=== PATIENT | male | born 1935 | race Caucasian/White ===

== ENCOUNTER 2019-07-24 23:10 | Inpatient (IN) ==
[2019-07-24] MEDS ORDERED: SODIUM CHLORIDE 0.9% 1000ML 1,000 ML IV SCH (23:45)
[2019-07-25] MEDS ORDERED: MoRPHine SULFATE 2 MG/ML CARP IV STA (00:09)
[2019-07-25 00:59] LABS: Basophils # (auto) 0.01 K/uL (0-0.2); Basophils % (auto) 0.1 %; Eosinophils # (auto) 0.05 K/uL (0-0.5); Eosinophils % (auto) 0.3 %; Hematocrit (blood only) 35.5 % (42-52); Hemoglobin 11.8 g/dL (14.0-18.0); Immature Granulocytes # (auto) 0.16 K/uL (0.00-0.02); Immature Granulocytes % (auto) 0.9 %; Lymphocytes # (auto) 1.86 K/uL (1.2-3.4); Lymphocytes % (auto) 10.4 %; Mean Corpuscular Hemoglobin 31.8 pg (25-34); Mean Corpuscular Hgb Conc 33.2 g/dL (32-36); Mean Corpuscular Volume 95.7 fL (80-100); Mean Platelet Volume 10.4 fL (7.4-10.4); Monocytes # (auto) 1.51 K/uL (0.11-0.59); Monocytes % (auto) 8.5 %; Neutrophils # (auto) 14.27 K/uL (1.4-6.5); Neutrophils % (auto) 79.8 %; Platelet Count 313 K/uL (130-400); RDW Coefficient of Variation 13.3 % (11.5-14.5); RDW Standard Deviation 46.4 fL (36.4-46.3); Red Blood Count 3.71 M/uL (4.7-6.1); White Blood Count 17.86 K/uL (4.8-10.8)
[2019-07-25 01:16] LABS: Alanine Aminotransferase 23 U/L (12-78); Albumin Level 3.1 gm/dl (3.4-5.0); Aspartate Aminotransferase 9 U/L (15-37); BUN Creatinine Ratio 20.2 (10-20); Blood Urea Nitrogen 24 mg/dl (7-18); Calcium 8.7 mg/dl (8.5-10.1); Carbon Dioxide 26 mmol/L (21-32); Chloride 107 mmol/L (98-107); Est GFR (African American) 65.5; Est GFR (Non-African American) 56.5; Glucose 112 mg/dl (70-99); Magnesium 1.4 mg/dl (1.8-2.4); Sodium 140 mmol/L (136-145)
[2019-07-25 01:27] LABS: Alkaline Phosphatase 74 U/L (45-117); Bilirubin,Total 0.4 mg/dl (0.2-1); Globulin 3.2 gm/dl (2.5-4.0); Total Protein 6.3 gm/dl (6.4-8.2)
[2019-07-25] MEDS ORDERED: SODIUM CHLORIDE 0.9% 1000ML 500 ML IV ONE (01:58)
[2019-07-25] MEDS ORDERED: cefTRIAXone SODIUM 2,000 MG/70 ML BAG IV STA (01:58)
[2019-07-25] MEDS ORDERED: ACETAMINOPHEN 500 MG TAB PO STA (02:59)
[2019-07-25] MEDS ORDERED: DAPTOmycin 275 MG in SYRINGE 0 ML IV ONE (03:15)
[2019-07-25] MEDS ORDERED: DAPTOMYCIN CONSULT ACTIVE PRN (03:15)
[2019-07-25] MEDS ORDERED: AMLODIPINE BESYLATE 5 MG TAB PO STA (03:19)
--- NOTE | 2019-07-25 03:23 | Emergency Department Note ---
Impression & Plan SIRS (systemic inflammatory response syndrome), PAD (peripheral artery disease), Acute pain of right foot ED Provider Note NAME: MARIO YOUNGER AGE: 84 SEX: M ARRIVES VIA: Walk-In INFORMANT: [Patient] patient's ED PROVIDER(S): Sampson Rowland MD CHIEF COMPLAINT: Right foot pain PLAN: Disposition: Admitted Condition: [Good] MEDICAL DECISION MAKING: Patient presented because of right foot pain. His laboratory testing was concerning for Sirs as he had a white count of over 17,000 with elevated lactate. Chemistries were unremarkable. The patient was hydrated. He was given IV Rocephin and IV daptomycin. He was given IV morphine for pain control. Ultrasound imaging of the lower extremities was performed. He had swelling on the left side, the nonpainful side, and venous imaging was performed. Due to his history of PAD arterial imaging was done on the right side. X-ray imaging of the right foot was also performed. Chest x-ray was negative. On discussion with the patient and I recommended admission because of the findings. The patient and were in agreement. I did discuss the case with who evaluated the patient in the ER for further management. Triage Nursing notes reviewed and agree them. [Additional history obtained from] patient's Vital Signs: reviewed and remarkable for fever Differential diagnosis: DVT, Sirs, sepsis, osteomyelitis, musculoskeletal, infection, joint effusion, trauma, lymphedema, idiopathic, CHF, as well as other pathologies. ER treatment provided: Normal saline IV Rocephin IV morphine IV daptomycin Oral Tylenol Diagnostics interpreted by me: ECG: Rate: 71 Rhythm:Normal sinus Reliance:Normal QRS:Normal ST segements:No elevation or depression Other:No PACs or PVCs. LVH Cardiac Monitoring: Cardiac monitoring ordered by me: The patient was placed on continuous cardiac monitoring and observed. It revealed a normal sinus rhythm at 90 beats per minute without ectopy or evidence of dysrhythmia. Laboratory studies: [See below] significant leukocytosis. Elevated lactate. Chemistry is unremarkable. Imaging studies: Chest x-ray. Findings: A chest x-ray was performed and revealed no pneumothorax, effusion, infiltrate, pulmonary edema, free air under the diaphragm, or wide mediastinum. Impression: No acute disease. X-ray of edging of the right foot reveals no bony abnormality. Significant va scular calcifications present. Venous Doppler of the left lower extremity reveals no evidence of acute DVT. Arterial Doppler of the right lower extremity reveals moderate to significant PAD. [facility] 84/M arrives for evaluation of worsening right foot pain. He was supposed to have a vascular procedure for PAD performed but declined 2 weeks ago. notes he has a history of poor circulation in the right leg. He did have an toenail removed on the right great toe due to an infection. Patient took no medication for his pain at home. He rates his pain as a 7 out of 10. Pt denies LOC, headache, chills, diaphoresis, visual changes, neck pain, chest pain, breathing difficulties, nausea, vomiting, abdominal pain, back pain, melena, hematochezia, urinary symptoms, numbness, weakness, lymphadenopathy, rash, or other complaints. ROS: See above HPI for pertinent positives & negatives. A total of [10] systems reviewed and were otherwise negative. PAST MEDICAL HISTORY:[See Below] peripheral artery disease PAST SURGICAL HISTORY:[See Below] FAMILY HISTORY:[See Below] SOCIAL HISTORY:[See Below] HOME MEDICATIONS:[See Below] ALLERGIES:[See Below] VITALS:[See Below] PHYSICAL EXAMINATION: GENERAL: Awake, alert, uncomfortable-appearing, in no distress HENT: Normocephalic, atraumatic. Oropharynx unremarkable. EYES: Normal conjunctiva. Sclera non-icteric. NECK: Inspection normal. Non-tender. Supple. No nuchal rigidity. FROM. No masses. RESPIRATORY: Clear to auscultation. No wheezes. No rales. Normal respiratory effort. CARDIAC: Normal rate. Normal rhythm. No murmurs. No rubs. Extremities warm and well perfused. Pulses equal. No JVD. GI: Soft, non-distended. No tenderness to palpation. No rebound or guarding. No masses. RECTAL: Deferred. MUSCULOSKELETAL: Atraumatic. Chest examination reveals no tenderness. The back is symmetrical on inspection without obvious abnormality. There is no CVA tenderness to palpation. No joint edema. LOWER EXTREMITIES: Calves are equal size bilaterally and non-tender. 2+ left lower extremity edema. No significant right lower extremity edema other than some trace pedal edema. There is healing incision from an ingrown toenail of the right great toe. Mild surrounding erythema. The toes are cool to the touch. NEURO: Normal sensorium. No sensory or motor deficits noted. SKIN: No rash or jaundice noted. 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 DM II (diabetes mellitus, type II), controlled HTN (hypertension) Hypercholesteremia PAD (peripheral artery disease) Surgical History (Updated 06/21/19 @ 09:15 by Sandra Chapin, RN) Previous back surgery Social History (Updated 06/21/19 @ 09:18 by Sandra Chapin, RN) Preferred Language: Syriac Communication Ability: Effective Communication Tools: Letter Board, Picture Board and Facial Expression Visual Impairment: Limited Hearing Ability: Hard of Hearing Beliefs That Will Affect Care: None marital status: Current Living Situation: Spouse current occupational status: retired current occupation: [employer] Feels Safe at Home: Yes Smoking Status: Never smoker Hx Alcohol Use: No Hx Substance Use: No Childhood Exposure to Second-Hand Smoke: No caffeine: Yes (1 cup/day of coffee) during the past year weight has: decreased > 10 lbs Dental Care, Regularly: Yes Physical Activity Frequency: 1-2 Times per Week Sunscreen Use: Yes Do you think of yourself as: straight/heterosexual Sexual Activity: has been sexually active, but not for at least 12 months Allergies Allergies Allergy/AdvReac Type Severity Reaction Status Date / Time No Known Allergies Allergy Unknown Verified 07/25/19 00:39 Home Meds Home Medications Medication Instructions Recorded Confirmed acetaminophen 500 mg tablet 500 mg PO Q6H PRN 04/12/19 07/25/19 amlodipine 5 mg tablet 5 mg PO DAILY 04/12/19 07/25/19 aspirin 81 mg tablet,delayed 81 mg PO DAILY 04/12/19 07/25/19 release atenolol 25 mg tablet 25 mg PO DAILY 04/12/19 07/25/19 lorazepam 1 mg tablet 0.5 mg PO DAILY 04/12/19 07/25/19 mecobalamin (vitamin B12) 1,000 500 mcg PO DAILY 04/12/19 07/25/19 mcg chewable tablet metformin 500 mg tablet 1,000 mg PO DAILY 04/12/19 07/25/19 simvastatin 20 mg tablet 20 mg PO DAILY 04/12/19 07/25/19 prednisone See Taper PO DAILY 07/25/19 07/25/19 Results & Data (ED) Vital Signs Vital Signs - 24 hr 07/24/19 23:14 07/25/19 00:19 07/25/19 01:13 Temperature 37.9 C H Temperature Source Oral Pulse Rate 52 L Pulse Rate [Right Finger] 62 Pulse Rhythm [Right Finger] Pulse Strength [Right Finger] Respiratory Rate 18 16 Respiratory Effort / Characteristics Non-Labored Spontaneous Respiratory Depth Normal Normal Blood Pressure 157/71 H Blood Pressure [Right Arm] 174/81 H Blood Pressure Mean 99 Blood Pressure Mean [Right Arm] 112 Blood Pressure Position Sitting Blood Pressure Position [Right Arm] Lying Pulse Oximetry 99 96 98 Oxygen Delivery Method Room Air Room Air Room Air Sepsis Recent Fever Within 48 Hours No Sepsis New/Unexplained Change in Mental Status No Sepsis Action Taken by Nursing No Action Required 07/25/19 03:02 Temperature Temperature Source Pulse Rate Pulse Rate [Right Finger] 71 Pulse Rhythm [Right Finger] Regular Pulse Strength [Right Finger] Normal Respiratory Rate 18 Respiratory Effort / Characteristics Non-Labored Spontaneous Respiratory Depth Normal Blood Pressure Blood Pressure [Right Arm] 161/80 H Blood Pressure Mean Blood Pressure Mean [Right Arm] 107 Blood Pressure Position Blood Pressure Position [Right Arm] Sitting Pulse Oximetry 95 Oxygen Delivery Method Room Air Sepsis Recent Fever Within 48 Hours Sepsis New/Unexplained Change in Mental Status Sepsis Action Taken by Nursing Laboratory Data Result diagrams: 07/25/19 00:30 07/25/19 00:30 Lab Results 07/25/19 07/25/19 07/25/19 Range/Units 00:30 00:30 00:30 WBC 17.86 H (4.8-10.8) K/uL RBC 3.71 L (4.7-6.1) M/uL Hgb 11.8 L (14.0-18.0) g/dL Hct 35.5 L (42-52) % MCV 95.7 (80-100) fL MCH 31.8 (25-34) pg MCHC 33.2 (32-36) g/dL RDW Std Deviation 46.4 H (36.4-46.3) fL RDW Coeff of Marilee 13.3 (11.5-14.5) % Plt Count 313 (130-400) K/uL MPV 10.4 (7.4-10.4) fL Immature Gran % (Auto) 0.9 % Neut % (Auto) 79.8 % Lymph % (Auto) 10.4 % Louisa % (Auto) 8.5 % Eos % (Auto) 0.3 % Baso % (Auto) 0.1 % Immature Gran # (Auto) 0.16 H (0.00-0.02) K/uL Neut # (Auto) 14.27 H (1.4-6.5) K/uL Lymph # (Auto) 1.86 (1.2-3.4) K/uL Louis[place] # (Auto) 1.51 H (0.11-0.59) K/uL Eos # (Auto) 0.05 (0-0.5) K/uL Baso # (Auto) 0.01 (0-0.2) K/uL APTT 23.8 (21.0-31.0) Seconds PTT Ratio 0.9 Sodium 140 (136-145) mmol/L Potassium 4.0 (3.5-5.1) mmol/L Chloride 107 (98-107) mmol/L Carbon Dioxide 26 (21-32) mmol/L Anion Gap 7.0 (3-11) BUN 24 H (7-18) mg/dl Creatinine 1.19 (0.6-1.4) mg/dl Est Cr Clr Drug Dosing Not Reportable Est GFR ( Amer) 65.5 Est GFR (Non-Af Amer) 56.5 BUN/Creatinine Ratio 20.2 H (10-20) Glucose 112 H (70-99) mg/dl Lactate (0.4-2.0) mmol/L Calcium 8.7 (8.5-10.1) mg/dl Magnesium 1.4 L (1.8-2.4) mg/dl Total Bilirubin 0.4 (0.2-1) mg/dl AST 9 L (15-37) U/L ALT 23 (12-78) U/L Alkaline Phosphatase 74 (45-117) U/L Total Protein 6.3 L (6.4-8.2) gm/dl Albumin 3.1 L (3.4-5.0) gm/dl Globulin 3.2 (2.5-4.0) gm/dl Albumin/Globulin Ratio 1.0 (0.9-2) TSH 1.170 (0.300-4.500) uIu/ml 07/25/19 07/25/19 Range/Units 00:42 03:08 WBC (4.8-10.8) K/uL RBC (4.7-6.1) M/uL Hgb (14.0-18.0) g/dL Hct (42-52) % MCV (80-100) fL MCH (25-34) pg MCHC (32-36) g/dL RDW Std Deviation (36.4-46.3) fL RDW Coeff of Marilee (11.5-14.5) % Plt Count (130-400) K/uL MPV (7.4-10.4) fL Immature Gran % (Auto) % Neut % (Auto) % Lymph % (Auto) % Louisa % (Auto) % Eos % (Auto) % Baso % (Auto) % Immature Gran # (Auto) (0.00-0.02) K/uL Neut # (Auto) (1.4-6.5) K/uL Lymph # (Auto) (1.2-3.4) K/uL Louisa # (Auto) (0.11-0.59) K/uL Eos # (Auto) (0-0.5) K/uL Baso # (Auto) (0-0.2) K/uL APTT (21.0-31.0) Seconds PTT Ratio Sodium (136-145) mmol/L Potassium (3.5-5.1) mmol/L Chloride (98-107) mmol/L Carbon Dioxide (21-32) mmol/L Anion Gap (3-11) BUN (7-18) mg/dl Creatinine (0.6-1.4) mg/dl Est Cr Clr Drug Dosing Est GFR ( Amer) Est GFR (Non-Af Amer) BUN/Creatinine Ratio (10-20) Glucose (70-99) mg/dl Lactate 2.2 H* 1.9 (0.4-2.0) mmol/L Calcium (8.5-10.1) mg/dl Magnesium (1.8-2.4) mg/dl Total Bilirubin (0.2-1) mg/dl AST (15-37) U/L ALT (12-78) U/L Alkaline Phosphatase (45-117) U/L Total Protein (6.4-8.2) gm/dl Albumin (3.4-5.0) gm/dl Globulin (2.5-4.0) gm/dl Albumin/Globulin Ratio (0.9-2) TSH (0.300-4.500) uIu/ml Administered Medications Sodium Chloride (Nss 1000ml) 1,000 mls @ 125 mls/hr IV .Q8H MAGALIS Stop: 07/25/19 07:44 Last Admin: 07/25/19 01:27 Dose: 125 mls/hr Documented by: [id number] Discontinued Medications Acetaminophen (Tylenol) 1,000 mg PO NOW STA Stop: 07/25/19 03:00 Last Admin: 07/25/19 04:08 Dose: 1,000 mg Documented by: [id number] Amlodipine Besylate (Norvasc) 5 mg PO NOW STA Stop: 07/25/19 03:20 Last Admin: 07/25/19 04:09 Dose: 5 mg Documented by: [id number] Sodium Chloride (Nss 1000ml) 500 mls @ 999 mls/hr IV .Q31M ONE Stop: 07/25/19 02:28 Last Infusion: 07/25/19 03:33 Dose: 0 mls/hr Documented by: [id number] Admin: 07/25/19 03:00 Dose: 999 mls/hr Documented by: [id number] Ceftriaxone Sodium (Rocephin) 2,000 mg in 70 mls @ 140 mls/hr IV NOW STA Stop: 07/25/19 02:27 Last Infusion: 07/25/19 03:33 Dose: 0 mls/hr Documented by: [id number] Admin: 07/25/19 03:01 Dose: 140 mls/hr Documented by: [id number] Daptomycin 275 mg/ Syringe 5.5 mls @ 2.75 mls/min IV NOW ONE; Protocol Stop: 07/25/19 03:16 Last Admin: 07/25/19 04:08 Dose: 2.75 mls/min Documented by: [id number] Morphine Sulfate (Morphine Sulfate) 2 mg IV NOW STA Stop: 07/25/19 00:10 Last Admin: 07/25/19 01:27 Dose: 2 mg Documented by: [id number] Discharge Plan Visit Data Chief Complaint: Leg Injury/Pain Stated Complaint: PAIN IN FEET, POOR CIRCULATION IN LEGS ED Provider: Sampson Rowland Discharge Problem: SIRS (systemic inflammatory response syndrome), PAD (peripheral artery disease), Acute pain of right foot Patient Disposition: Admitted As Inpatient Discharge Instructions Interventions: ED Discharge Assessment Last Done: 07/25/19 04:30
[2019-07-25 03:34] LABS: Partial Thromboplastin Ratio 0.9; Partial Thromboplastin Time 23.8 Seconds (21.0-31.0)
--- NOTE | 2019-07-25 03:57 | History & Physical Report ---
Date of Service July 25, 2019 Assessment & Plan (1) Severe sepsis: SIRS plus lactic acid elevation ? R 1st and 2 nd Toe cellulitis Rule out osteomyelitis hx PAD Acute on chronic anemia, hemoglobin drop from baseline occult GI bleed on rectal exam hypertension, slight elevated hyperlipidemia on statin Rx DM 2 on oral medications, well-controlled as of recent hemoglobin A1c of 6.21 Jun 2019 Dementia, at baseline Recent neck pain complaints at PCPs office attributed to muscle spasm status post 1 dose of prednisone, patient comfortable past tobacco abuse Medical telemetry Cultures, Daptomycin, Cefepime IVF, follow lactic acid MRI right foot to rule out osteomyelitis if official plain foot x-ray negative for osteomyelitis Follow LLE arterial Dopplers given prominent coolness on exam. May eventually need ID opinion pending work-up results. Inpatient [facility] vascular specialist (Dr. Bender) follow-up as per daughter's request. Appropriate hold aspirin for now given occult GI bleed. Anemia work-up Serial H&H, transfuse PRBC if hemoglobin less than 8 and or for symptomatic anemia. GI consult RE occult GI bleed, anemia/hemoglobin drop from baseline N.p.o. for now anticipation of any procedure in a.m. Stop prednisone course for neck pain. Consider inpatient imaging if patient with new complaints. ISS BG goal [id number] PT OT eval DVT prophylaxis. TEDS (RE occult GI bleed, SCDs contraindicated with PAD) Full code Patient's family requesting for updates from providers. Ms. Rhonda Madden, (daughter, primary contact) #[phone]. Ms. Jayashree Aguirre (, secondary contact) at [phone]. Text document was generated using Traity voice recognition software. It may contain grammatical or spelling errors. Kindly contact undersigned for clarification of any documentation item in question. History of Present Illness Chief Complaint: Foot pain as per daughter Primary Care Provider: Kareem Ventura MD History obtained from patient, family, and records. History somewhat limited from patient secondary to dementia. Medical history significant for PAD, hypertension, hyperlipidemia, DM 2 on oral medications, chronic anemia (baseline hemoglobin 13), past tobacco abuse as per records, dementia. Last confinement April 2012 for weakness and hydration. Patient referred by accounts payable payroll coordinator to [facility] vascular specialist last March 2019 for evaluation of peripheral arterial disease. Outpatient bilateral lower extremity arterial duplex showed moderate to severe calcific sclerosis bilateral lower extremity arterial systems. Outpatient bilateral lower extremity angiogram procedure for PAD<critical limb ischemia and nonhealing lower extremity ulceration last April 2019 by [facility] vascular specialist aborted due to patient confusion/agitation during procedure. On last follow-up visit with vascular specialist 2 weeks ago, patient's left lower extremity ulceration on the fifth toe unchanged as per note. No active infection noted. Patient complaining of right foot pain the family. Patient and family to discuss scheduling repeat attempt at LE angiography with anesthesia as per note. Patient seen at PCPs office last week for neck pain for 1 month related to motion. Neck pain attributed to muscle spasm after examination as per note. No x-rays done. Topical diclofenac ineffective for discomfort. Prednisone course prescribed by PCP, first dose of which was taken yesterday. As per patient's daughter, patient complaining of worsening R foot pain the last few days. Patient's daughter noted increased darkening of the first digit of the right foot and new involvement of the second digit. At the ER, patient received daptomycin and ceftriaxone for sepsis. Patient denies right foot pain complaints currently. According to patient it was his left foot that was bothering him more the last few days. No chest pain, no S OB. Patient denies neck pain complaints currently. No arm/leg weakness. Denies abdominal pain. Denies black/ bloody stools. MEDICAL HISTORY: As above. SURGICAL HISTORY: Cataract surgery. Hernia repair FAMILY HISTORY: There is a family history of heart disease. PERSONAL/ SOCIAL HISTORY: Past tobacco abuse. 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 Lives with his . Allergies Allergy/AdvReac Type Severity Reaction Status Date / Time No Known Allergies Allergy Unknown Verified 07/25/19 00:39 Home Medications Home Medications Medication Instructions Recorded Confirmed Type acetaminophen 500 mg tablet 500 mg PO Q6H PRN 04/12/19 07/25/19 History amlodipine 5 mg tablet 5 mg PO DAILY 04/12/19 07/25/19 History aspirin 81 mg tablet,delayed 81 mg PO DAILY 04/12/19 07/25/19 History release atenolol 25 mg tablet 25 mg PO DAILY 04/12/19 07/25/19 History lorazepam 1 mg tablet 0.5 mg PO DAILY 04/12/19 07/25/19 History mecobalamin (vitamin B12) 1,000 500 mcg PO DAILY 04/12/19 07/25/19 History mcg chewable tablet metformin 500 mg tablet 1,000 mg PO DAILY 04/12/19 07/25/19 History simvastatin 20 mg tablet 20 mg PO DAILY 04/12/19 07/25/19 History prednisone See Taper PO DAILY 07/25/19 07/25/19 History Past Med/Surg History Medical History (Updated 07/25/19 @ 06:30 by Jose F Holden MD) 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 DM II (diabetes mellitus, type II), controlled HTN (hypertension) Hypercholesteremia PAD (peripheral artery disease) Surgical History (Updated 06/21/19 @ 09:15 by Sandra Chapin RN) Previous back surgery Social History (Updated 06/21/19 @ 09:18 by Sandra Chapin RN) Preferred Language: Mosotho Communication Ability: Effective Communication Tools: Letter Board, Picture Board and Facial Expression Visual Impairment: Limited Hearing Ability: Hard of Hearing Beliefs That Will Affect Care: None marital status: Current Living Situation: Spouse current occupational status: retired current occupation: [employer] Other Information That Helps Us Care for You: No Feels Safe at Home: Yes Safety Concerns: Feels Safe At This Time Smoking Status: Former smoker Second Hand Exposure: No ; Hx Alcohol Use: No Hx Substance Use: No Childhood Exposure to Second-Hand Smoke: No caffeine: Yes (1 cup/day of coffee) during the past year weight has: decreased > 10 lbs Dental Care, Regularly: Yes Physical Activity Frequency: 1-2 Times per Week Sunscreen Use: Yes Do you think of yourself as: straight/heterosexual Sexual Activity: has been sexually active, but not for at least 12 months Review of Systems Review of Systems: Could not be reliably obtained Physical Exam Physical Exam: GENERAL: Comfortable, pleasant, demented, slightly hard of hearing, no respiratory distress SKIN: Pallor, warm HEENT: Alopecia, pale palpebral conjunctivae, no ptosis, dry buccal mucosa NECK : Supple, no overt limitation in motion, no tenderness CHEST : CTA, no tenderness HEART : RRR, no obvious murmurs ABDOMEN: Some distention, nontender RECTAL : Intact sphincter, brown stool (FOBT positive) EXTREMITIES : No LE swelling/tenderness; erythematous discoloration right first and second digits right foot with dystrophic toenails without overt tenderness or drainage; left foot was noted to be very cool, LLE pedal pulses not very palpable NEUROLOGIC : Coherent but demented, no facial asymmetry, slightly hard of hearing no other gross focality Results & Data Results & Data ([facility]) Vital Signs (Past 12 Hours) Vital Signs Temp Pulse Pulse Resp BP BP Pulse Ox 07/25/19 03:02 71 18 161/80 H 95 07/25/19 01:13 62 16 174/81 H 98 07/25/19 00:19 96 07/24/19 23:14 37.9 C H 52 L 18 157/71 H 99 Laboratory Results Laboratory Results WBC 17.86 K/uL (4.8-10.8) H 07/25/19 00:30 RBC 3.71 M/uL (4.7-6.1) L 07/25/19 00:30 Hgb 11.8 g/dL (14.0-18.0) L 07/25/19 00:30 Hct 35.5 % (42-52) L 07/25/19 00:30 MCV 95.7 fL (80-100) 07/25/19 00:30 MCH 31.8 pg (25-34) 07/25/19 00:30 MCHC 33.2 g/dL (32-36) 07/25/19 00:30 RDW Std Deviation 46.4 fL (36.4-46.3) H 07/25/19 00:30 RDW Coeff of Marilee 13.3 % (11.5-14.5) 07/25/19 00:30 Plt Count 313 K/uL (130-400) 07/25/19 00:30 MPV 10.4 fL (7.4-10.4) 07/25/19 00:30 Immature Gran % (Auto) 0.9 % 07/25/19 00:30 Neut % (Auto) 79.8 % 07/25/19 00:30 Lymph % (Auto) 10.4 % 07/25/19 00:30 [place] % (Auto) 8.5 % 07/25/19 00:30 Eos % (Auto) 0.3 % 07/25/19 00:30 Baso % (Auto) 0.1 % 07/25/19 00:30 Immature Gran # (Auto) 0.16 K/uL (0.00-0.02) H 07/25/19 00:30 Neut # (Auto) 14.27 K/uL (1.4-6.5) H 07/25/19 00:30 Lymph # (Auto) 1.86 K/uL (1.2-3.4) 07/25/19 00:30 [place] # (Auto) 1.51 K/uL (0.11-0.59) H 07/25/19 00:30 Eos # (Auto) 0.05 K/uL (0-0.5) 07/25/19 00:30 Baso # (Auto) 0.01 K/uL (0-0.2) 07/25/19 00:30 APTT 23.8 Seconds (21.0-31.0) 07/25/19 00:30 PTT Ratio 0.9 07/25/19 00:30 Sodium 140 mmol/L (136-145) 07/25/19 00:30 Potassium 4.0 mmol/L (3.5-5.1) 07/25/19 00:30 Chloride 107 mmol/L (98-107) 07/25/19 00:30 Carbon Dioxide 26 mmol/L (21-32) 07/25/19 00:30 Anion Gap 7.0 (3-11) 07/25/19 00:30 BUN 24 mg/dl (7-18) H 07/25/19 00:30 Creatinine 1.19 mg/dl (0.6-1.4) 07/25/19 00:30 Est Cr Clr Drug Dosing Not Reportable 07/25/19 00:30 Est GFR ( Amer) 65.5 07/25/19 00:30 Est GFR (Non-Af Amer) 56.5 07/25/19 00:30 BUN/Creatinine Ratio 20.2 (10-20) H 07/25/19 00:30 Glucose 112 mg/dl (70-99) H 07/25/19 00:30 Lactate 1.9 mmol/L (0.4-2.0) 07/25/19 03:08 Calcium 8.7 mg/dl (8.5-10.1) 07/25/19 00:30 Magnesium 1.4 mg/dl (1.8-2.4) L 07/25/19 00:30 Total Bilirubin 0.4 mg/dl (0.2-1) 07/25/19 00:30 AST 9 U/L (15-37) L 07/25/19 00:30 ALT 23 U/L (12-78) 07/25/19 00:30 Alkaline Phosphatase 74 U/L (45-117) 07/25/19 00:30 Total Protein 6.3 gm/dl (6.4-8.2) L 07/25/19 00:30 Albumin 3.1 gm/dl (3.4-5.0) L 07/25/19 00:30 Globulin 3.2 gm/dl (2.5-4.0) 07/25/19 00:30 Albumin/Globulin Ratio 1.0 (0.9-2) 07/25/19 00:30 TSH 1.170 uIu/ml (0.300-4.500) 07/25/19 00:30 Diagnostic Findings Right foot x-ray read pending Bilateral LE venous Dopplers initial read no DVT RLE arterial Dopplers initial read 30 to 49% stenosis within proximal SFA, mid SFA and 50 to 74% stenosis within the mid MODEL BUILDER. Flow present within the anterior tibial artery, posterior tibial artery and peroneal artery. Chest x-ray as per my interpretation cardiomegaly, atelectasis EKG as per my interpretation : Rate 70, NSR, normal axis, no ischemia, LVH
[2019-07-25 04:49] LABS: Appearance Urine Clear (Clear); Bilirubin Urine Negative (Negative); Blood Urine Negative (Negative); Color Urine Yellow; Glucose Urine UA Negative (Negative); Ketones Urine Negative (Negative); Leukocyte Esterase Urine Negative (Negative); Nitrite Urine Negative (Negative); Protein Urine Negative (Negative); Specific Gravity Urine 1.012 (1.000-1.030); Urobilinogen Urine Negative (Negative)
[2019-07-25] MEDS ORDERED: PROMETHAZINE HCL 12.5 MG in SODIUM CHLORIDE 0.9% 50 ML IV PRN (05:03)
[2019-07-25] MEDS ORDERED: GLUCOSE 40% GEL 15 GM TUBE PO PRN (05:03)
[2019-07-25] MEDS ORDERED: OLANZapine 10 MG/2.1 ML SDV IM PRN (05:03)
[2019-07-25] MEDS ORDERED: CARBOHYDRATES FOR HYPOGLYCEMIA PO PRN (05:03)
[2019-07-25] MEDS ORDERED: GLUCOSE 10 TABS/TUBE PO PRN (05:03)
[2019-07-25] MEDS ORDERED: DEXTROSE 50% 50 ML SYRINGE IV PRN (05:03)
[2019-07-25] MEDS ORDERED: NORMOSOL-R 1,000 ML IV SCH (05:03)
[2019-07-25] MEDS ORDERED: GLUCAGON FOR INJ 1 MG VIAL SQ PRN (05:03)
[2019-07-25] MEDS ORDERED: TRAMADOL HCL 50 MG TABLET PO PRN (05:03)
[2019-07-25] MEDS ORDERED: CEFEPIME CONSULT ACTIVE PRN (05:07)
[2019-07-25] MEDS ORDERED: MoRPHine SULFATE 2 MG/ML CARP IV PRN (05:07)
[2019-07-25] MEDS ORDERED: PNEUMOCOCCAL ADMINISTRATION CHARGE ONE (05:31)
[2019-07-25] MEDS ORDERED: PNEUMOCOCCAL POLYSACCHARIDES 25 MCG/0.5 ML VIAL/SYR IM ONE (05:31)
[2019-07-25] MEDS: MAGNESIUM SULFATE / D5W 1 GM/100 ML BAG IV SCH ×3 (05:43→08:44)
[2019-07-25] MEDS: INSULIN ASPART 100 UNITS/ML 3 ML PEN SC SCH ×4 (05:57→20:47)
[2019-07-25 06:05] LABS: Hematocrit (blood only) 33.9 % (42-52); Hemoglobin 11.4 g/dL (14.0-18.0); Reticulocyte % 1.8 % (0.5-2.0); Reticulocytes # 0.06 10^6/uL (0.02-0.10)
[2019-07-25 06:43] LABS: Ferritin 347.3 ng/ml (8-388)
--- NOTE | 2019-07-25 06:46 | Electrocardiogram Report ---
Test Reason : Blood Pressure : / mmHG Vent. Rate : 071 BPM Atrial Rate : 071 BPM P-R Int : 160 ms QRS Dur : 086 ms QT Int : 384 ms P-R-T Axes : 048 048 071 degrees QTc Int : 417 ms Normal sinus rhythm Minimal voltage criteria for LVH, may be normal variant Borderline ECG When compared with ECG of 03-MAY-2012 04:05, Nonspecific T wave abnormality no longer evident in Anterolateral leads Confirmed by Da Horne ([id number]) on 07/25/2019 6:46:02 AM Referred By: REFERRED SELF Confirmed By:Da Horne
--- NOTE | 2019-07-25 07:32 | XRay Report ---
XR chest 1V portable CLINICAL HISTORY: weakness COMPARISON STUDY: 05/03/2012 FINDINGS: The heart is borderline enlarged. There is a suboptimal inspiration with mild basilar atele ctasis. There is no failure. There is no focal pulmonary consolidation. No pleural effusions are visu alized. Tendinous calcifications are visualized within the left shoulder. There is mild right apical pleural thickening.[ IMPRESSION: No active disease in the chest. ACT 112: Negative or not required by law. Electronically signed by: Krystian Rodriguez M.D. 07/25/2019 7:31 AM
--- NOTE | 2019-07-25 07:33 | XRay Report ---
XR foot RT min 3V routine CLINICAL HISTORY: R foot pain, r great toe infection COMPARISON: None. DISCUSSION: There are vascular calcifications. No acute fractures or dislocations are visualized. The re is a tiny plantar calcaneal spur. Degenerative changes are present the level the first metatarsal phalangeal joint. There is no conventional radiographic evidence of acute osteomyelitis. IMPRESSION: 1 degenerative change. No acute fractures. No conventional radiographic evidence of acute osteomyelitis ACT 112: Negative or not required by law. Electronically signed by: Krystian Rodriguez M.D. 07/25/2019 7:32 AM
--- NOTE | 2019-07-25 07:39 | Ultrasound Report ---
US arterial duplex LE RT CLINICAL HISTORY: Peripheral vascular disease. COMPARISON STUDY: No previous studies for comparison. FINDINGS: The study was limited from a technical standpoint secondary to suboptimal patient cooperati on and extensive shadowing atheromatous plaque. There is biphasic flow within the common femoral and superficial femoral arteries. There is diffuse a theromatous plaque present. There are several areas with elevated velocities within the superficial f emoral artery consistent with mild stenotic lesions. There is monophasic flow within the popliteal ar khadar. There is a focus of elevated velocity within the posterior tibial artery suggesting a focal marina nosis. There is monophasic flow within the anterior tibial, posterior tibial, and peroneal arteries. IMPRESSION: 1. Diffuse atherosclerotic disease. 2. Mild stenotic lesions within the right superficial femoral artery. Moderate stenosis within the ri ght posterior tibial artery. 3. Monophasic three-vessel runoff. ACT 112: Negative or not required by law. Electronically signed by: Krystian Rodriguez M.D. 07/25/2019 7:38 AM
--- NOTE | 2019-07-25 07:53 | Ultrasound Report ---
US venous doppler LE BI CLINICAL HISTORY: Right leg pain left leg swelling. Possible DVT. COMPARISON STUDY: No previous studies for comparison. FINDINGS: Real-time and color flow Doppler imaging were performed. Flow was seen within the femoral, popliteal and calf veins with no intraluminal thrombus demonstrated. The saphenous vein is patent. Th ere are areas of venous wall thickening and calcification within the differential femoral veins bilat erally. This likely is a sequela of remote DVT. IMPRESSION: No evidence of acute lower extremity DVT. ACT 112: Negative or not required by law. Electronically signed by: Krystian Rodriguez M.D. 07/25/2019 7:52 AM
[2019-07-25 08:04] LABS: Folate (Folic Acid) 8.02 ng/ml (>5.38)
[2019-07-25] MEDS: ATENOLOL 25 MG TABLET PO SCH (08:59)
[2019-07-25] MEDS: AMLODIPINE BESYLATE 5 MG TAB PO SCH (08:59)
[2019-07-25] MEDS ORDERED: CEFEPIME 2,000 MG in SYRINGE 7.5 ML IV SCH (09:00)
--- NOTE | 2019-07-25 09:23 | Ultrasound Report ---
US arterial duplex LE LT HISTORY: 84 years-old Male cold L foot peripheral artery disease. COMPARISON: Duplex arterial study of the right lower extremity 07/25/2019 TECHNIQUE: Multiple real-time sonographic images of the left lower extremity deep venous structures w ere obtained assessing grayscale appearance, color and spectral flow FINDINGS: There is extensive calcified plaque throughout the left lower extremity arterial structures. Limited exam secondary to lack of patient cooperation. The patient also moved the lower extremity throughout the study. Biphasic waveforms are noted within the common femoral, profunda femoris, superficial femoral and pop liteal arteries. Mildly elevated peak systolic velocities within the superficial femoral artery, 128 cm/s. Blunted monophasic waveforms are noted within the posterior tibial artery. Monophasic waveforms are noted within the peroneal, anterior tibial and dorsalis pedis arteries. IMPRESSION: 1. Diffuse atherosclerotic vascular disease. 2. Mildly elevated peak systolic velocities within the superficial femoral artery suggestive of mild stenosis. 3. No arterial occlusion. 4. Monophasic three-vessel runoff. ACT 112: Negative or not required by law. The above report was generated using voice recognition software. It may contain grammatical, syntax o r spelling errors. Electronically signed by: Demetrio Mcneil M.D. 07/25/2019 9:22 AM
[2019-07-25] MEDS ORDERED: DAPTOmycin 100 MG in SYRINGE 0 ML IV ONE (10:00)
[2019-07-25] MEDS ORDERED: LORazepam 0.5 MG TAB PO PRN (11:41)
--- NOTE | 2019-07-25 11:43 | Gastrointestinal Consultation ---
Date of Consultation July 25, 2019 Assessment & Plan (1) PAD (peripheral artery disease): (2) Anemia: (3) Fecal occult blood test positive: Pt is a 84 y/o male currently seen for acute on chronic anemia, FOBT positive. Low iron profile, FA and B12 normal. He is not displaying s/s of scot Gi bleeding. He has mild dementia. As I offered possible EGD/Colonoscopy to r/o GI sources of bleeding, malignancy, he refused this. I also spoke w pt's and daughter. Daughter feels that the GI workup should not take priority at this time, but rather pt's R foot pain 2/2 PVD. Daughter wants us to defer endoscopic evals until perhaps later in outpt setting. GI will sign off; pls recall prn Supervising Physician Co-Signing Physician Notes Late entry: Patient was seen and examine don 07/24 with MIHIR Busby whose note reflects our findings and plan. History of Present Illness Reason for Consultation: Anemia, FOBT positive. Requesting Physician: Dr. Juice Rivera Attending Physician: Dr. Ct Judd History of Present Illness Pt is a 84 y/o male, currently admitted w R foot pain. Hx of PVD, established w Vascular Medicine (Dr. Kapil Bender), admission imaging studies w/o signs of osteomyelitis or DVT. It's noted that on his admission labs, he has a drop on his blood ct. Baseline Hgb 13-14, currently 11. Stool test yesterday was + for FOBT. Iron studies showed low iron, normal B12, and FA. Pt has mild dementia but answering questions quite well, oriented mostly to self and place. He denies symptoms of abd pain, n/v, rectal bleeding or dark tarry stools. Last BM this AM also w/o reports of melena or BRBPR. He never had any endoscopic evals in the past Allergies Allergy/AdvReac Type Severity Reaction Status Date / Time No Known Allergies Allergy Unknown Verified 07/25/19 00:39 Home Medications Home Medications Medication Instructions Recorded Confirmed Type acetaminophen 500 mg tablet 500 mg PO Q6H PRN 04/12/19 07/25/19 History amlodipine 5 mg tablet 5 mg PO DAILY 04/12/19 07/25/19 History aspirin 81 mg tablet,delayed 81 mg PO DAILY 04/12/19 07/25/19 History release atenolol 25 mg tablet 25 mg PO DAILY 04/12/19 07/25/19 History lorazepam 1 mg tablet 0.5 mg PO DAILY 04/12/19 07/25/19 History mecobalamin (vitamin B12) 1,000 500 mcg PO DAILY 04/12/19 07/25/19 History mcg chewable tablet metformin 500 mg tablet 1,000 mg PO DAILY 04/12/19 07/25/19 History simvastatin 20 mg tablet 20 mg PO DAILY 04/12/19 07/25/19 History prednisone See Taper PO DAILY 07/25/19 07/25/19 History Patient History Medical History 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 DM II (diabetes mellitus, type II), controlled HTN (hypertension) Hypercholesteremia PAD (peripheral artery disease) Surgical History Previous back surgery Social History Preferred Language: Macedonian Communication Ability: Effective Communication Tools: Letter Board, Picture Board and Facial Expression Visual Impairment: Limited Hearing Ability: Hard of Hearing Beliefs That Will Affect Care: None marital status: Current Living Situation: Spouse current occupational status: retired current occupation: shoes salesman Other Information That Helps Us Care for You: No Feels Safe at Home: Yes Safety Concerns: Feels Safe At This Time Smoking Status: Former smoker Second Hand Exposure: No ; Hx Alcohol Use: No Hx Substance Use: No Childhood Exposure to Second-Hand Smoke: No caffeine: Yes (1 cup/day of coffee) during the past year weight has: decreased > 10 lbs Dental Care, Regularly: Yes Physical Activity Frequency: 1-2 Times per Week Sunscreen Use: Yes Do you think of yourself as: straight/heterosexual Sexual Activity: has been sexually active, but not for at least 12 months Review of Systems Review of Systems: All systems reviewed & are unremarkable except as noted in HPI & below Physical Exam Constitutional: WD/WN, vitals as above well groomed, cooperative and comfortable Eyes: PERRL, conjunctivae normal, anicteric sclerae ENMT: external ear and nose normal, oropharynx normal Respiratory: normal respiratory effort, lungs clear to auscultation Cardiovascular: RRR, no murmur, no edema Gastrointestinal (Abdomen): normal bowel sounds, soft, nontender, no hepatosplenomegaly Skin: no rashes, warm and dry no jaundice Psychiatric: Orientation: alert, oriented to person, oriented to place and cooperative Lymphatic: no lymphedema Results & Data ([facility]) Vital Signs (Past 12 Hours) Vital Signs Temp Pulse Pulse Resp BP Pulse Ox 07/25/19 11:33 36.7 C 58 L 18 129/55 L 93 07/25/19 07:29 57 L 07/25/19 07:19 36.7 C 83 18 164/69 H 99 07/25/19 05:47 65 07/25/19 05:20 36.9 C 66 18 158/66 H 97 07/25/19 04:12 75 17 175/52 H 94 07/25/19 03:02 71 18 161/80 H 95 07/25/19 01:13 62 16 174/81 H 98 07/25/19 00:19 96
[2019-07-25 11:52] LABS: Hematocrit (blood only) 37.4 % (42-52); Hemoglobin 12.4 g/dL (14.0-18.0)
--- NOTE | 2019-07-25 13:48 | Magnetic Resonance Report ---
MR foot RT w/o con HISTORY: 84 years-old Male Concern for osteomyelitis patient presents with soft tissue wound of the right great toe. Clinical concern for osteomyelitis. COMPARISON: Right foot radiographs 07/25/2019 TECHNIQUE: Multiplanar multisequence MRI of the right foot was obtained without the use of IV contras t. FINDINGS: The study is markedly motion degraded. Technologist reports that the patient is demented and had diff iculty holding still for the exam. There is a cutaneous marker noted along the dorsal aspect of the great toe. There is extensive bone m arrow edema throughout the first distal phalanx with suspected slightly decreased T1 signal within th is distribution which is difficult to characterize secondary to the artifact. Additionally, there is moderate bone marrow edema involving the second distal phalanx. No definitive osseous erosions. Diffu se subcutaneous and intramuscular edema of the forefoot. Cutaneous ulceration involves the dorsal asp ect of the first phalanx. No drainable fluid collection. Mild multifocal osteoarthritis. IMPRESSION: 1. Limited exam secondary to extensive motion artifact. 2. Extensive bone marrow edema of the first distal phalanx deep to the soft tissue ulcer is noted wit h with suggestion of mildly decreased T1 marrow signal suggestive of reactive osteitis versus early o steomyelitis. No definitive osseous erosion identified. 3. Bone marrow edema of the second distal phalanx with normal-appearing T1 marrow signal is likely re active. 4. Nonspecific subcutaneous and intramuscular edema of the forefoot. ACT 112: Negative or not required by law. The above report was generated using voice recognition software. It may contain grammatical, syntax o r spelling errors. Electronically signed by: Demetrio Mcneil M.D. 07/25/2019 1:47 PM
--- NOTE | 2019-07-25 19:20 | Hospitalist Progress Note ---
Date of Service July 25, 2019 Assessment & Plan Admission and Anticipated Discharge Date Admission Date: July 25, 2019 Subjective Patient was admitted this morning, currently sitting in the chair in no acute distress. He is able to answer questions appropriately. Reports pain in his right foot. On exam both feet are cool to touch. Patient is alert and oriented, conversing easily, breathing comfortably on room air, lungs are clear to auscultation bilaterally, heart rates are regular, abdomen is soft nontender nondistended. Patient is able to move extremities spontaneously and without difficulty. X-ray of his right foot was obtained and did not show acute osteomyelitis. MRI of foot ordered. GI consulted and saw the patient for positive FOBT and anemia. Offered endoscopy however patient declined. Discussed also with family and at this point not interested in further evaluation, would proceed with evaluation as outpatient. GI signed off. Contacted by Dr. Bender, plan for procedure on Wednesday 9 AM if patient stays in the hospital. If possible discharge earlier, procedure can be done in outpatient setting. Given high white blood cell count, and concern for sepsis, awaiting cultures, patient will likely stay in the hospital for next 24 to 48 hours at least. Results & Data Results & Data ([facility]) Vital Signs (Past 12 Hours) Vital Signs Temp Pulse Pulse Resp BP Pulse Ox 07/25/19 17:10 60 07/25/19 16:09 36.7 C 61 20 145/77 H 98 07/25/19 11:33 36.7 C 58 L 18 129/55 L 93 07/25/19 07:29 57 L 07/25/19 07:19 36.7 C 83 18 164/69 H 99
[2019-07-25] MEDS: CEFEPIME 2,000 MG in SYRINGE 7.5 ML IV SCH (20:52)
--- NOTE | 2019-07-25 22:36 | Vascular Medicine Consultation ---
Date of Consultation July 25, 2019 Assessment & Plan (1) PAD (peripheral artery disease): 2. RT foot cellulitis, ulceration possible osteo 3. LT foot ulceration. 4. Type 2 diabetes on oral therapy 5. Hypertension 6. Mild anemia with positive FOBT 7. Dementia Presentation concerning for right lower extremity critical limb ischemia with ulceration, cellulitis and possible early osteomyelitis. Reviewed vascular testing from current admission and obtained in office in March. Suspect has multilevel disease on right, severe tibial vessel disease on LT. Recommend proceeding with angiography and likely endovascular intervention to RLE. Dementia at baseline and previously unable to cooperate with procedure using moderate sedation. Will request anesthesia involvement. Procedure tentatively scheduled for Wednesday morning. Discussed plan with patient's and hospital medicine team. Possible intervention to left lower extremity at a later date pending patients ability to tolerate initial procedure. History of Present Illness Attending Physician: Juice Rivera MD History of Present Illness Mr. Aguirre is an 84-year-old man known to me from the outpatient setting today in the setting of known PAD, left lower extremity ulceration and worsening right foot pain. His past medical history is remarkable for type 2 diabetes diagnosed 3 years ago on metformin, Hypertension, dyslipidemia and dementia with questionable normal pressure hydrocephalus, patient declined what sounds to be a shunt.. Patient was initially seen by me 03/2019 after referred by data warehouse developer Dr. Bansal. Reported pain in bilateral fifth digits for several months. No other significant pain in the foot at rest at that time. Unsure when initially noted ulcer on left fifth digit. Denied any prior history of ulcerations. No history of claudication. ABIs 03/2019 right posterior tibial of 0.39, right DP NC. Left DP 0.63 left PT NC. Arterial duplex 03/2019 right ARCELIA 0.52, TBI 0.27 (48 mmHg), left ARCELIA 0.84, TBI 0.18 (32 mmHg). -RLE50 to 74% proximal/mid SFA, distal popliteal, multisegmental occlusions and PLASTIC MOULD MAKER, LUPIS -LLE50 to 74% mid SFA, 75 to 99% left tibioperoneal trunk, multisegment occlusions left LUPIS, left PLASTIC MOULD MAKER occluded distally Attempted left lower extremity on 05/05/2019. Patient confused prior to procedure and increasingly confused with sedation and unable to lie flat. Procedure aborted after access with no angiography. Since that time LT 5th toe ulcer largely unchanged. Seen 2 weeks ago and family noted increasing complaints of right foot pain at rest. No fevers or chills. Discussed repeat attempt at intervention but patient declined. Presented to ED yesterday due to RT foot pain. In ED had low grade fever, elevated WBC, borderline lactate and admitted due to concern for sepsis. Now on broad spectrum IV abx. Blood cultures pending. Hospital imaging- Xray RT foot negative for osteo. Venous duplex negative for DVT bilaterally. RT arterial duplex - 50-74% prox and mid SFA, suspected high-grade popliteal stenosis with monophasic tibial flow and likely multisegment disease LT arterial duplex - mild mid SFA disease, monophasic PLASTIC MOULD MAKER/peroneal waveforms and distal LUPIS waveforms MRI-limited edema RT 1st digit osteitis vs osteo, reactive 2nd digit Allergies Allergy/AdvReac Type Severity Reaction Status Date / Time No Known Allergies Allergy Unknown Verified 07/25/19 00:39 Home Medications Home Medications Medication Instructions Recorded Confirmed Type acetaminophen 500 mg tablet 500 mg PO Q6H PRN 04/12/19 07/25/19 History amlodipine 5 mg tablet 5 mg PO DAILY 04/12/19 07/25/19 History aspirin 81 mg tablet,delayed 81 mg PO DAILY 04/12/19 07/25/19 History release atenolol 25 mg tablet 25 mg PO DAILY 04/12/19 07/25/19 History lorazepam 1 mg tablet 0.5 mg PO DAILY 04/12/19 07/25/19 History mecobalamin (vitamin B12) 1,000 500 mcg PO DAILY 04/12/19 07/25/19 History mcg chewable tablet metformin 500 mg tablet 1,000 mg PO DAILY 04/12/19 07/25/19 History simvastatin 20 mg tablet 20 mg PO DAILY 04/12/19 07/25/19 History prednisone See Taper PO DAILY 07/25/19 07/25/19 History Patient History Medical History 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 DM II (diabetes mellitus, type II), controlled HTN (hypertension) Hypercholesteremia PAD (peripheral artery disease) Surgical History Previous back surgery Social History Preferred Language: Yi Communication Ability: Effective Communication Tools: Letter Board, Picture Board and Facial Expression Visual Impairment: Limited Hearing Ability: Hard of Hearing Beliefs That Will Affect Care: None marital status: Current Living Situation: Spouse current occupational status: retired current occupation: shoes salesman Other Information That Helps Us Care for You: No Feels Safe at Home: Yes Safety Concerns: Feels Safe At This Time Smoking Status: Former smoker Second Hand Exposure: No ; Hx Alcohol Use: No Hx Substance Use: No Childhood Exposure to Second-Hand Smoke: No caffeine: Yes (1 cup/day of coffee) during the past year weight has: decreased > 10 lbs Dental Care, Regularly: Yes Physical Activity Frequency: 1-2 Times per Week Sunscreen Use: Yes Do you think of yourself as: straight/heterosexual Sexual Activity: has been sexually active, but not for at least 12 months Review of Systems Review of Systems: Unobtainable due to cognitive status Physical Exam Physical Exam: General: Confused, repeatedly asks where his was Eyes: Sclerae anicteric, extraocular movements intact Neck: Normal carotid upstrokes Lungs: Clear to auscultation bilaterally, no rhonchi or wheezes Cardiac: Regular rate and rhythm, no murmurs Abdomen: Soft, nontender Psych: Alert orient x2, memory of events poor. Extremities/Vascular: -- Non-palpable DP/PT pulses bilaterally. Diminished capillary refill left > right. Left distal foot cool --Right foot red across level of MTP. Right great toenail black --Left fifth digit with 3 mm superficial ulceration on lateral aspect without surrounding erythema or induration. Results & Data Vital Signs (Past 12 Hours) Vital Signs Temp Pulse Pulse Resp BP Pulse Ox 07/25/19 17:10 60 07/25/19 16:09 98.1 F 61 20 145/77 H 98 07/25/19 11:33 98.1 F 58 L 18 129/55 L 93 PG Care Time/CCT Total # of Minutes Spent Total Time Spent with Patient: Total time spent is greater than 50% in coordination of care (as documented) at patient's floor/unit and/or counseling patient: Coding Level of Care Code 58650 Initial Inpt Care Lvl 3 Diagnoses PAD (peripheral artery disease) I73.9
[2019-07-26] MEDS ORDERED: DAPTOmycin 275 MG in SYRINGE 0 ML IV SCH (04:00)
[2019-07-26 07:44] LABS: Basophils # (auto) 0.02 K/uL (0-0.2); Basophils % (auto) 0.2 %; Eosinophils # (auto) 0.15 K/uL (0-0.5); Eosinophils % (auto) 1.2 %; Hemoglobin 12.1 g/dL (14.0-18.0); Immature Granulocytes # (auto) 0.09 K/uL (0.00-0.02); Immature Granulocytes % (auto) 0.7 %; Lymphocytes # (auto) 1.53 K/uL (1.2-3.4); Lymphocytes % (auto) 12.6 %; Mean Corpuscular Hemoglobin 31.7 pg (25-34); Mean Corpuscular Hgb Conc 33.6 g/dL (32-36); Mean Corpuscular Volume 94.2 fL (80-100); Mean Platelet Volume 10.3 fL (7.4-10.4); Monocytes # (auto) 1.14 K/uL (0.11-0.59); Monocytes % (auto) 9.4 %; Neutrophils % (auto) 75.9 %; Platelet Count 274 K/uL (130-400); RDW Coefficient of Variation 13.1 % (11.5-14.5); RDW Standard Deviation 45.2 fL (36.4-46.3); Red Blood Count 3.82 M/uL (4.7-6.1); White Blood Count 12.13 K/uL (4.8-10.8)
[2019-07-26 08:20] LABS: BUN Creatinine Ratio 19.8 (10-20); Calcium 8.9 mg/dl (8.5-10.1); Creatinine Clr Calc Pharmacy 50.5 ml/min; Est GFR (Non-African American) 73.3; Magnesium 2.3 mg/dl (1.8-2.4); Phosphorus 3.6 mg/dl (2.5-4.9)
[2019-07-26] MEDS: INSULIN ASPART 100 UNITS/ML 3 ML PEN SC SCH ×4 (08:22→20:23)
[2019-07-26] MEDS: AMLODIPINE BESYLATE 5 MG TAB PO SCH (08:22)
[2019-07-26] MEDS: ATENOLOL 25 MG TABLET PO SCH (08:22)
[2019-07-26] MEDS: CEFEPIME 2,000 MG in SYRINGE 7.5 ML IV SCH ×2 (08:25→20:29)
[2019-07-26] MEDS ORDERED: ACETAMINOPHEN 325 MG TAB PO PRN (08:29)
[2019-07-26] MEDS ORDERED: OXYCODONE HCL IR 5 MG TAB (IMMEDIATE RELEASE) PO PRN (08:29)
--- NOTE | 2019-07-26 08:46 | Hospitalist Progress Note ---
Date of Service July 26, 2019 Assessment & Plan (1) Severe sepsis: possible osteomyelitis Peripheral Arterial Disease (PAD) -SIRS plus lactic acid elevation, admitting physician concerned for Right 1st and 2 nd Toe cellulitis -empirically started on daptomycin and cefepime (continue for now) -Duplex doppler arterial of lower extremity on 07/25/2019 1. Diffuse atherosclerotic vascular disease. 2. Mildly elevated peak systolic velocities within the superficial femoral artery suggestive of mild stenosis. 3. No arterial occlusion. 4. Monophasic three-vessel runoff. -vascular Dr. Octavio Bender suggested angiography of the right leg on Wednesday07/28/2019 -MRI of right foot 07/25/2019 concerning for possible osteomyelitis 1. Limited exam secondary to extensive motion artifact. 2. Extensive bone marrow edema of the first distal phalanx deep to the soft tissue ulcer is noted with with suggestion of mildly decreased T1 marrow signal suggestive of reactive osteitis versus early osteomyelitis. No definitive osseous erosion identified. 3. Bone marrow edema of the second distal phalanx with normal-appearing T1 marrow signal is likely reactive. 4. Nonspecific subcutaneous and intramuscular edema of the forefoot. 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 prn pain medications adjusted on 07/26/2019 (2) Dementia: -patient's family have concerns that if patient gets PICC line or midline that he may pull this line out, discussed with them the concerns, they give permission if needed but hospitalist will not order PICC or midline yet until further workup -case management consulted if patient needs short term physical rehabilitation after this hospital stay -PT / OT evaluations (3) Anemia: Acute on chronic anemia -hemoglobin drop from baseline, occult GI bleed on rectal exam as per previous medical provider, FOBT positive -Gastroenterology service evaluated on 07/25/2019 but patient's family deferred any EGD or colonoscopy at this time to avoid excessive anesthesia in case patient needs right foot procedure -holding home dose aspirin for now -Hgb stable as of 07/26/2019 labs Hypertension Hyperlipidemia -continue home dose atenolol 25 mg daily and amlodipine 5 mg daily -continue statin Type 2 diabetes mellitus without skilled nursing curren use of insulin -hemoglobin A1c of 6.21 Jun 2019 -hold home barney metformin -continue sliding scale insulin while inpatient Recent neck pain complaints at PCPs office attributed to muscle spasm status post 1 dose of prednisone -no acute neck discomforts expressed to medical staff while inpatient Past tobacco use DVT prophylaxis. TEDS (RE occult GI bleed, SCDs contraindicated with PAD) Full code Family Ms. Rhonda Madden, (daughter, primary contact) #[phone]. Ms. Jayashree Aguirre (, secondary contact) at [phone]. Admission and Anticipated Discharge Date Admission Date: July 25, 2019 Subjective there are eschar of the right first big toe that is painful to the touch. there are smaller eschar on side of toe of right foot. there this dressing/bandage over medial side of left foot patient is not in distress. breathing on room air. no apparent pain anywhere else. no distress. there are no further witnessed blood from rectum as per nursing staff. patient denies dsyuria had long conversation with patient's Jayashree [phone] and daughter Rhonda Madden [phone] in regards to obtaining orthopedic consult and possible needs of skilled nursing IV antibiotics of osteomyelitis present of the right big toe - Rhonda gave permission for PICC line or midline if needed because of patient's dementia. Review of Systems Review of Systems: All systems reviewed & are unremarkable except as noted in Subjective Physical Exam 2 Eyes: PERRL, conjunctivae normal, anicteric sclerae EOM intact bilaterally ENMT: external ear and nose normal, oropharynx normal Neck: normal visual inspection Respiratory: normal respiratory effort, lungs clear to auscultation Cardiovascular: Rate/Rhythm: regular rate Gastrointestinal (Abdomen): normal bowel sounds, soft, nontender, no hepatosplenomegaly Musculoskeletal: Head/Neck/Chest: normocephalic there are eschar of the right first big toe that is painful to the touch. there are smaller eschar on side of toe of right foot. there this dressing/bandage over medial side of left foot Neurologic: PERRL, EOMI, accommodation nl, no face palsy, no dysarthria CN's II-XI intact bilaterally Psychiatric: Orientation: alert, oriented to person and oriented to place Results & Data Results & Data ([facility]) Vital Signs (Past 12 Hours) Vital Signs Temp Pulse Pulse Resp BP Pulse Ox 07/26/19 07:56 37.2 C 62 18 135/59 L 97 07/26/19 07:48 58 L 07/25/19 23:00 37.4 C 79 20 147/99 H 92 07/25/19 22:20 65
[2019-07-26] MEDS: DAPTOmycin 375 MG in SYRINGE 0 ML IV SCH (08:48)
--- NOTE | 2019-07-26 16:53 | Orthopedic Consultation ---
Date of Consultation July 26, 2019 Assessment & Plan (1) Ischemic toe ulcer: He has ischemic ulcers on his right first and second toes, with a little bit of surrounding cellulitis on the second toe. This is in the setting of known severe peripheral arterial disease. Vascular surgery (Dr. Bender) is planning for angiography and endovascular intervention on the right leg on Wednesday. The edema in the distal phalanx of the first and second toes raises concern for osteomyelitis, but no obvious areas of osteolysis or osteonecrosis that requires urgent surgical debridement. There are no abscesses in the area. No evidence of a significant spreading infection. He denies any pain in the to es. I do not see an indication for urgent surgical intervention from an orthopedic perspective. I would recommend Wound Care to evaluate and treat these ulcers, and see if they heal with wound care intervention and vascular surgery intervention to improve blood flow to the area. Antibiotics per primary team; he is currently on cefepime and daptomycin. I will place an order for Wound Care consult, as well as ESR and CRP for trending. History of Present Illness Reason for Consultation: Possible osteomyelitis right 1st and 2nd toes Requesting Physician: Dr. Fernandez Attending Physician: Mor Fernandez MD History of Present Illness Mr. Aguirre is an 84-year-old male with known severe peripheral arterial disease who has developed ulcerations on his right great toe and second toe. He is unsure how long these ulcerations have been there; he says "a while". He denies any pain in his foot or toe currently. Allergies Allergy/AdvReac Type Severity Reaction Status Date / Time No Known Allergies Allergy Unknown Verified 07/25/19 00:39 Home Medications Home Medications Medication Instructions Recorded Confirmed Type acetaminophen 500 mg tablet 500 mg PO Q6H PRN 04/12/19 07/25/19 History amlodipine 5 mg tablet 5 mg PO DAILY 04/12/19 07/25/19 History aspirin 81 mg tablet,delayed 81 mg PO DAILY 04/12/19 07/25/19 History release atenolol 25 mg tablet 25 mg PO DAILY 04/12/19 07/25/19 History lorazepam 1 mg tablet 0.5 mg PO DAILY 04/12/19 07/25/19 History mecobalamin (vitamin B12) 1,000 500 mcg PO DAILY 04/12/19 07/25/19 History mcg chewable tablet metformin 500 mg tablet 1,000 mg PO DAILY 04/12/19 07/25/19 History simvastatin 20 mg tablet 20 mg PO DAILY 04/12/19 07/25/19 History prednisone See Taper PO DAILY 07/25/19 07/25/19 History Patient History Medical History 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 DM II (diabetes mellitus, type II), controlled HTN (hypertension) Hypercholesteremia PAD (peripheral artery disease) Surgical History Previous back surgery Social History Preferred Language: Chinese Communication Ability: Impaired Communication Tools: Letter Board, Picture Board and Facial Expression Visual Impairment: Limited Hearing Ability: Hard of Hearing Beliefs That Will Affect Care: None marital status: Current Living Situation: Spouse current occupational status: retired 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 Other Information That Helps Us Care for You: No Feels Safe at Home: Yes Safety Concerns: Feels Safe At This Time Smoking Status: Former smoker Second Hand Exposure: No ; Hx Alcohol Use: No Hx Substance Use: No Childhood Exposure to Second-Hand Smoke: No caffeine: Yes (1 cup/day of coffee) during the past year weight has: decreased > 10 lbs Dental Care, Regularly: Yes Physical Activity Frequency: 1-2 Times per Week Sunscreen Use: Yes Do you think of yourself as: straight/heterosexual Sexual Activity: has been sexually active, but not for at least 12 months Physical Exam Physical Exam: General: The patient appears well developed and well nourished. Awake, alert, and oriented x 3. Appropriate mood and affect. Normal station. Gait not assessed. Normal coordination and balance. Skin: The skin over the right great toe shows ulceration on the dorsaldistal aspect of the great toe in the area of the nailbed and nail plate. There is dark, hard necrotic eschar, but it is unclear whether this is his actual nail plate or necrotic underlying nailbed. There is ulceration on the medial aspect of the proximal eponychial fold with some fibrinous material. There is a small ulceration on the medial aspect of the second toe in the first webspace. Inspection/Palpation: Visual inspection reveals the above-mentioned ulcerations on the first and second toes. There is no significant swelling or induration on the great toe, but mild diffuse swelling and erythema on the second toe. No significant focal tenderness to palpation. No expressible drainage. Range of Motion: There is good range of motion of the first and second toes without any pain. Stability: There is no gross ligamentous laxity. Strength: There is full strength of the toes, foot, and ankle. Sensation: The patient reports no numbness in the foot. Vascular: Both feet are overall cool, but appear perfused with good capillary refill. Dorsalis pedis pulse is not palpable. Results & Data ([facility]) Vital Signs (Past 12 Hours) Vital Signs Temp Pulse Pulse Resp BP BP Pulse Ox 07/26/19 16:04 65 07/26/19 15:40 36.6 C 66 18 148/50 H 97 07/26/19 12:00 36.7 C 60 18 125/69 98 07/26/19 07:56 37.2 C 62 18 135/59 L 97 07/26/19 07:48 58 L Laboratory Results WBC 12.13, no ESR or CRP Diagnostic Findings X-rays of the right foot were reviewed. I do not see any obvious osteolysis or periosteal reaction that would indicate osteomyelitis. He does have extensive vascular calcifications throughout the foot, consistent with his severe peripher al arterial disease. MRI of the foot was also reviewed. It is significantly degraded by motion artifact. There does appear to be edema within the distal phalanx of the great toe and second toe, but no obvious osteolysis, erosions, or osteonecrosis. (1) Ischemic toe ulcer Laterality: right Non-pressure ulcer stage: limited to breakdown of skin Qualified Code(s): L97.511 - Non-pressure chronic ulcer of other part of right foot limited to breakdown of skin
[2019-07-27 06:40] LABS: BUN Creatinine Ratio 22.4 (10-20); Calcium 8.8 mg/dl (8.5-10.1); Creatinine Clr Calc Pharmacy 44.1 ml/min; Est GFR (African American) 72.1; Est GFR (Non-African American) 62.2; Potassium 4.4 mmol/L (3.5-5.1)
[2019-07-27] MEDS: CEFEPIME 2,000 MG in SYRINGE 7.5 ML IV SCH ×2 (08:04→20:26)
[2019-07-27] MEDS: AMLODIPINE BESYLATE 5 MG TAB PO SCH (08:05)
[2019-07-27] MEDS: DAPTOmycin 375 MG in SYRINGE 0 ML IV SCH (08:05)
[2019-07-27] MEDS: ATENOLOL 25 MG TABLET PO SCH (08:05)
[2019-07-27] MEDS: INSULIN ASPART 100 UNITS/ML 3 ML PEN SC SCH ×4 (08:18→20:44)
--- NOTE | 2019-07-27 12:32 | Hospitalist Progress Note ---
Date of Service July 27, 2019 Assessment & Plan (1) Severe sepsis: possible osteomyelitis Peripheral Arterial Disease (PAD) -SIRS plus lactic acid elevation, admitting physician concerned for Right 1st and 2 nd Toe cellulitis -empirically started on daptomycin and cefepime (continue for now) -Duplex doppler arterial of lower extremity on 07/25/2019 1. Diffuse atherosclerotic vascular disease. 2. Mildly elevated peak systolic velocities within the superficial femoral artery suggestive of mild stenosis. 3. No arterial occlusion. 4. Monophasic three-vessel runoff. -vascular Dr. Octavio Bender suggested angiography of the right leg on Wednesday07/28/2019 -MRI of right foot 07/25/2019 concerning for possible osteomyelitis 1. Limited exam secondary to extensive motion artifact. 2. Extensive bone marrow edema of the first distal phalanx deep to the soft tissue ulcer is noted with with suggestion of mildly decreased T1 marrow signal suggestive of reactive osteitis versus early osteomyelitis. No definitive osseous erosion identified. 3. Bone marrow edema of the second distal phalanx with normal-appearing T1 marrow signal is likely reactive. 4. Nonspecific subcutaneous and intramuscular edema of the forefoot. 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 prn pain medications adjusted on 07/26/2019 -07/27/2019: orthopedics service not advising and surgical interventions, patient seen by wound care, awaiting to see if Dr. Bender planning on right leg angiography, continue IV antibiotics for now (2) Dementia: -patient's family have concerns that if patient gets PICC line or midline that he may pull this line out, discussed with them the concerns, they give permission if needed but hospitalist will not order PICC or midline yet until further workup -case management consulted if patient needs short term physical rehabilitation after this hospital stay -PT / OT evaluations (3) Anemia: Acute on chronic anemia -hemoglobin drop from baseline, occult GI bleed on rectal exam as per previous medical provider, FOBT positive -Gastroenterology service evaluated on 07/25/2019 but patient's family deferred any EGD or colonoscopy at this time to avoid excessive anesthesia in case patient needs right foot procedure -holding home dose aspirin for now -Hgb stable as of 07/26/2019 labs, no gross reported so far on medical hussein Hypertension Hyperlipidemia -continue home dose atenolol 25 mg daily and amlodipine 5 mg daily -continue statin 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 TEDS (RE occult GI bleed, SCDs contraindicated with PAD) Full code Family Ms. Rhonda Madden, (daughter, primary contact) #[phone]. Ms. Jayashree Aguirre (, secondary contact) at [phone]. Admission and Anticipated Discharge Date Admission Date: July 25, 2019 Subjective Patient seen and examined at the bedside. he is eating his meals. no acute distress. he is breathing on room air. he wonders where his is. i reminded him that he is in the hospital and that his is at home Review of Systems Review of Systems: All systems reviewed & are unremarkable except as noted in Subjective Physical Exam Eyes: PERRL, conjunctivae normal, anicteric sclerae EOM intact bilaterally ENMT: external ear and nose normal, oropharynx normal Neck: normal visual inspection Respiratory: normal respiratory effort, lungs clear to auscultation Cardiovascular: Rate/Rhythm: regular rate Gastrointestinal (Abdomen): normal bowel sounds, soft, nontender, no hepatosplenomegaly Musculoskeletal: Head/Neck/Chest: normocephalic Neurologic: PERRL, EOMI, accommodation nl, no face palsy, no dysarthria CN's II-XI intact bilaterally Psychiatric: Orientation: alert, oriented to person and oriented to place Results & Data Results & Data ([facility]) Vital Signs (Past 12 Hours) Vital Signs Temp Pulse Pulse Resp BP Pulse Ox 07/27/19 11:24 36.6 C 74 16 133/72 99 07/27/19 07:03 36.9 C 61 18 155/65 H 97 07/27/19 00:45 54 L
--- NOTE | 2019-07-27 18:58 | Anesthesiology Consultation ---
Date of Service July 27, 2019 Assessment & Plan (1) Encounter for pre-operative examination: Chart Review Chart Review: Acceptable Risk for Surgery and Patient NOT seen in Pre Admission Testing Consults Requested none History Surgery Operation Date: 07/28/19 09:00 Proposed Procedures p Lower Extremity Angiogram w/Possible Intervention w/Antonino - Asad Bender MD Height/Weight Height: 5 ft 7 in Weight: 60.2 kg Allergies Allergy/AdvReac Type Severity Reaction Status Date / Time No Known Allergies Allergy Unknown Verified 07/25/19 00:39 Medications Home Medications Medication Instructions Recorded Confirmed Last Taken acetaminophen 500 mg tablet 500 mg PO Q6H PRN 04/12/19 07/25/19 Unknown amlodipine 5 mg tablet 5 mg PO DAILY 04/12/19 07/25/19 07/24/19 aspirin 81 mg tablet,delayed 81 mg PO DAILY 04/12/19 07/25/19 07/24/19 release atenolol 25 mg tablet 25 mg PO DAILY 04/12/19 07/25/19 07/24/19 lorazepam 1 mg tablet 0.5 mg PO DAILY 04/12/19 07/25/19 07/24/19 mecobalamin (vitamin B12) 1,000 500 mcg PO DAILY 04/12/19 07/25/19 07/24/19 mcg chewable tablet metformin 500 mg tablet 1,000 mg PO DAILY 04/12/19 07/25/19 07/24/19 simvastatin 20 mg tablet 20 mg PO DAILY 04/12/19 07/25/19 07/24/19 prednisone See Taper PO DAILY 07/25/19 07/25/19 07/24/19 50 MG Active Medications Generic Name Dose Route Start Last Admin Trade Name Veena PRN Reason Stop Dose Admin Amlodipine Besylate 5 mg 07/25/19 09:00 07/28/19 07:06 Norvasc PO 08/24/19 08:59 5 mg DAILY MAGALIS Administration Atenolol 25 mg 07/25/19 09:00 07/28/19 07:06 Tenormin PO 08/24/19 08:59 25 mg DAILY MAGALIS Administration Cefepime HCl 2,000 mg/ Syringe 20 mls @ 5 mls/min 07/25/19 21:00 07/28/19 08:06 IV 08/01/19 20:59 5 mls/min Q12 MAGALIS Administration Protocol Daptomycin 375 mg/ Syringe 7.5 mls @ 3.75 mls/min 07/26/19 09:00 07/28/19 08:05 IV 08/01/19 08:59 3.75 mls/min QAM MAGALIS Administration Protocol Insulin Aspart 0 units 07/25/19 05:03 07/28/19 07:11 Novolog Flexpen SC 08/24/19 05:02 Not Given ACHS MAGALIS Lorazepam 0.5 mg 07/25/19 11:41 07/25/19 12:00 Ativan PO 08/24/19 11:40 0.5 mg ONE PRN Administration Anxiety NPO Date Last Intake of Fluids: 07/27/19 Time Last Intake of Fluids: 22:00 Date Last Intake of Solids: 07/27/19 Time Last Intake of Solids: 22:00 Past Medical History Medical History (Updated 07/27/19 @ 19:00 by Braulio Mcneill MD) Anemia 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 DM II (diabetes mellitus, type II), controlled HTN (hypertension) Hypercholesteremia Ischemic toe ulcer PAD (peripheral artery disease) PAD (peripheral artery disease) SIRS (systemic inflammatory response syndrome) (Inactive) Past Surgical History Surgical History Previous back surgery Past Anesthesia History No Hx of Anesthesia Complications and No Family Hx of Anesthesia Complications History of PONV No Hx of PONV and No Hx of Motion Sickness Social History Smoking Status: Former smoker Do You Dip or Chew Tobacco: No Hx Alcohol Use: No Hx Substance Use: No substance use type: does not use Physical Exam Vital Signs Last Vital Signs Temp 36.3 C L 07/28/19 07:25 Pulse 69 07/28/19 08:43 Resp 16 07/28/19 08:43 BP 157/108 H 07/28/19 08:43 Pulse Ox 99 07/28/19 08:43 Testing Laboratory Results 07/28/19 06:03 07/28/19 06:03 APTT 23.8 Seconds (21.0-31.0) 07/25/19 00:30 Urine Color Yellow 07/25/19 04:05 Urine Appearance Clear (Clear) 07/25/19 04:05 Urine pH 5.0 (4.5-7.5) 07/25/19 04:05 Ur Specific [place] 1.012 (1.000-1.030) 07/25/19 04:05 Urine Protein Negative (Negative) 07/25/19 04:05 Urine Glucose (UA) Negative (Negative) 07/25/19 04:05 Urine Ketones Negative (Negative) 07/25/19 04:05 Urine Nitrite Negative (Negative) 07/25/19 04:05 Ur Leukocyte Esterase Negative (Negative) 07/25/19 04:05 Blood Type O Positive 07/25/19 05:52 Antibody Screen NEGATIVE 07/25/19 05:52 07/25/19 00:42 Aerobic Blood Culture - Preliminary Blood No growth in Aerobic bottle after 48 hours. Anaerobic Blood Culture - Preliminary No growth in Anaerobic bottle after 48 hours. 07/25/19 00:30 Aerobic Blood Culture - Preliminary Blood No growth in Aerobic bottle after 48 hours. Anaerobic Blood Culture - Preliminary No growth in Anaerobic bottle after 48 hours. 07/28/19 06:14 POC Glucose 103 H Electrocardiogram Date: 07/25/19 Findings: + NSR @ (71) Normal sinus rhythm Minimal voltage criteria for LVH, may be normal variant Borderline ECG When compared with ECG of 03-MAY-2012 04:05, Nonspecific T wave abnormality no longer evident in Anterolateral leads Confirmed by Da Horne ([id number]) on 07/25/2019 6:46:02 AM Chest X-Ray Date: 07/25/19 XR chest 1V portable CLINICAL HISTORY: weakness COMPARISON STUDY: 05/03/2012 FINDINGS: The heart is borderline enlarged. There is a suboptimal inspiration with mild basilar atelectasis. There is no failure. There is no focal pulmonary consolidation. No pleural effusions are visualized. Tendinous calcifications are visualized within the left shoulder. There is mild right apical pleural thickening.[ IMPRESSION: No active disease in the chest.
[2019-07-28 06:29] LABS: Basophils # (auto) 0.03 K/uL (0-0.2); Basophils % (auto) 0.2 %; Eosinophils # (auto) 0.07 K/uL (0-0.5); Eosinophils % (auto) 0.6 %; Hematocrit (blood only) 39.6 % (42-52); Hemoglobin 13.4 g/dL (14.0-18.0); Immature Granulocytes # (auto) 0.06 K/uL (0.00-0.02); Immature Granulocytes % (auto) 0.5 %; Lymphocytes # (auto) 1.47 K/uL (1.2-3.4); Lymphocytes % (auto) 11.7 %; Mean Corpuscular Hemoglobin 31.9 pg (25-34); Mean Corpuscular Hgb Conc 33.8 g/dL (32-36); Mean Corpuscular Volume 94.3 fL (80-100); Mean Platelet Volume 10.4 fL (7.4-10.4); Monocytes # (auto) 1.42 K/uL (0.11-0.59); Monocytes % (auto) 11.3 %; Neutrophils # (auto) 9.55 K/uL (1.4-6.5); Neutrophils % (auto) 75.7 %; Platelet Count 314 K/uL (130-400); RDW Standard Deviation 44.2 fL (36.4-46.3)
[2019-07-28 07:05] LABS: BUN Creatinine Ratio 20.4 (10-20); Calcium 9.4 mg/dl (8.5-10.1); Creatinine Clr Calc Pharmacy 40.4 ml/min; Est GFR (African American) 67.6; Est GFR (Non-African American) 58.3; Potassium 4.1 mmol/L (3.5-5.1)
[2019-07-28] MEDS: ATENOLOL 25 MG TABLET PO SCH (07:06)
[2019-07-28] MEDS: AMLODIPINE BESYLATE 5 MG TAB PO SCH (07:06)
[2019-07-28] MEDS: INSULIN ASPART 100 UNITS/ML 3 ML PEN SC SCH ×3 (07:11→16:30)
--- NOTE | 2019-07-28 08:01 | Hospitalist Progress Note ---
Date of Service July 28, 2019 Assessment & Plan (1) Severe sepsis: possible osteomyelitis Peripheral Arterial Disease (PAD) -SIRS plus lactic acid elevation, admitting physician concerned for Right 1st and 2 nd Toe cellulitis -empirically started on daptomycin and cefepime (continue for now) -Duplex doppler arterial of lower extremity on 07/25/2019 1. Diffuse atherosclerotic vascular disease. 2. Mildly elevated peak systolic velocities within the superficial femoral artery suggestive of mild stenosis. 3. No arterial occlusion. 4. Monophasic three-vessel runoff. -vascular Dr. Octavio Bender suggested angiography of the right leg on Wednesday07/28/2019 -MRI of right foot 07/25/2019 concerning for possible osteomyelitis 1. Limited exam secondary to extensive motion artifact. 2. Extensive bone marrow edema of the first distal phalanx deep to the soft tissue ulcer is noted with with suggestion of mildly decreased T1 marrow signal suggestive of reactive osteitis versus early osteomyelitis. No definitive osseous erosion identified. 3. Bone marrow edema of the second distal phalanx with normal-appearing T1 marrow signal is likely reactive. 4. Nonspecific subcutaneous and intramuscular edema of the forefoot. -07/26/2019 updates: had long conversation with patient's Jayashree [phone] and daughter Rhonda Madden [phone] in regards to obtaining orthopedic consult and possible needs of buttermaker continuous churn IV antibiotics of osteomyelitis present of the right big toe - Rhonda gave permission for PICC line or midline if needed because of patient's dementia. prn pain medications adjusted on 07/26/2019 -07/27/2019: orthopedics service not advising and surgical interventions, patient seen by wound care, continue IV antibiotics for now -07/28/[address] Bender to do right leg angiography, continue antibiotics (2) Dementia: -patient's family have concerns that if patient gets PICC line or midline that he may pull this line out, discussed with them the concerns, they give permission if needed but hospitalist will not order PICC or midline yet until further workup -case management consulted if patient needs short term physical rehabilitation after this hospital stay -PT / OT evaluations (3) Anemia: Acute on chronic anemia -hemoglobin drop from baseline, occult GI bleed on rectal exam as per previous medical provider, FOBT positive -Gastroenterology service evaluated on 07/25/2019 but patient's family deferred any EGD or colonoscopy at this time to avoid excessive anesthesia in case patient needs right foot procedure -holding home dose aspirin for now -Hgb stable as of 07/26/2019 labs, no gross reported so far on medical hussein Hypertension Hyperlipidemia -continue home dose atenolol 25 mg daily and amlodipine 5 mg daily -continue statin Type 2 diabetes mellitus without care home curren use of insulin -hemoglobin A1c of 6.21 Jun 2019 -hold home barney metformin -continue sliding scale insulin while inpatient Recent neck pain complaints at PCPs office attributed to muscle spasm status post 1 dose of prednisone -no acute neck discomforts expressed to medical staff while inpatient Past tobacco use DVT prophylaxis. TEDS (RE occult GI bleed, SCDs contraindicated with PAD) Full code Family Ms. Rhonda Madden, (daughter, primary contact) #[phone]. Ms. Jayashree Aguirre (, secondary contact) at [phone]. Admission and Anticipated Discharge Date Admission Date: July 25, 2019 Subjective Patient seen sitting up in the chair. He has dementia but easily reorients - He reported that he wants to go home, hospitalist explains to him that today's plans is for angiography by Dr. Bender. patient calm. patient denies acute pain. no shortness of breath. breathing on room air. Review of Systems Review of Systems: All systems reviewed & are unremarkable except as noted in Subjective Physical Exam Eyes: PERRL, conjunctivae normal, anicteric sclerae EOM intact bilaterally ENMT: external ear and nose normal, oropharynx normal Neck: normal visual inspection Respiratory: normal respiratory effort, lungs clear to auscultation Cardiovascular: Rate/Rhythm: regular rate Gastrointestinal (Abdomen): normal bowel sounds, soft, nontender, no hepatosplenomegaly Musculoskeletal: Head/Neck/Chest: normocephalic Neurologic: PERRL, EOMI, accommodation nl, no face palsy, no dysarthria CN's II-XI intact bilaterally Psychiatric: Orientation: alert, oriented to person and oriented to place Results & Data Results & Data ([facility]) Vital Signs (Past 12 Hours) Vital Signs Temp Pulse Pulse Resp BP Pulse Ox 07/28/19 07:25 36.3 C L 64 18 169/73 H 97 07/28/19 04:31 56 L 07/27/19 23:00 37 C 96 H 20 165/56 H 100
[2019-07-28] MEDS: DAPTOmycin 375 MG in SYRINGE 0 ML IV SCH (08:05)
[2019-07-28] MEDS: CEFEPIME 2,000 MG in SYRINGE 7.5 ML IV SCH ×2 (08:06→21:24)
[2019-07-28] MEDS ORDERED: PROPOFOL IV EMULSION 10 MG/ML 100 ML VIAL IV ONE (08:28)
[2019-07-28] MEDS ORDERED: fentaNYL citrate 100 MCG/2 ML VIAL ONE ×4 (08:43→14:28)
[2019-07-28] MEDS ORDERED: NITROGLYCERIN/D5W 100MCG/ML 20ML SYR ONE ×2 (09:08→15:23)
[2019-07-28] MEDS ORDERED: NiCARDipine HCL INJ 2.5 MG/ML 10 ML AMP ONE ×2 (09:08→15:20)
--- NOTE | 2019-07-28 09:13 | Vascular Medicine ProgressNote ---
Date of Service July 28, 2019 Assessment & Plan (1) PAD (peripheral artery disease): 2. RT foot cellulitis, ulceration possible osteo 3. LT foot ulceration. 4. Type 2 diabetes on oral therapy 5. Hypertension 6. Mild anemia with positive FOBT 7. Dementia Proceed with lower extremity angiogram and likely RLE endovascular intervention. Subjective No issues overnight. Denies significant foot pain this morning. Review of Systems Review of Systems: Unobtainable due to cognitive status Physical Exam Physical Exam: General: Comfortable, no acute distress Eyes: Sclerae anicteric, extraocular movements intact Lungs: Clear to auscultation bilaterally, no rhonchi or wheezes Cardiac: Regular rate and rhythm Abdomen: Soft, nontender, nondistended, positive bowel sounds. Neuro: Nonfocal Psych: Alert orient x3, normal affect and mood Extremities/Vascular: -- 2+ radial bilaterally -- No edema Results & Data Vital Signs (Past 12 Hours) Vital Signs Temp Pulse Pulse Resp BP BP Pulse Ox 07/28/19 08:43 69 16 157/108 H 99 07/28/19 07:25 97.3 F L 64 18 169/73 H 97 07/28/19 04:31 56 L 07/27/19 23:00 98.6 F 96 H 20 165/56 H 100 PG Care Time/CCT Total # of Minutes Spent Total Time Spent with Patient: Total time spent is greater than 50% in coordination of care (as documented) at patient's floor/unit and/or counseling patient: Coding Level of Care Code 97809 Subseq Hosp Care Lvl 2 Diagnoses PAD (peripheral artery disease) I73.9
[2019-07-28] MEDS ORDERED: PROPOFOL IV EMULSION 10 MG/ML 20 ML VIAL IV ONE ×2 (09:38→17:15)
[2019-07-28] MEDS ORDERED: LIDOCAINE HCL 2% 2 ML VIAL/AMP(20MG/ML) INFIL ONE (09:38)
[2019-07-28] MEDS ORDERED: ePHEDrine sulfate 50 MG/ML AMP ONE ×2 (09:38→15:22)
[2019-07-28] MEDS ORDERED: HEPARIN SOD (PORCINE) 1000 UNIT/ML 10 ML VIAL ONE (10:27)
[2019-07-28] MEDS ORDERED: VASOPRESSIN 20 UNIT/ML VIAL ONE (12:30)
[2019-07-28] MEDS ORDERED: HEPARIN 25000 UNIT/500 ML D5W IV ONE (13:45)
[2019-07-28] MEDS ORDERED: HEPARIN (PORCINE) 1000 UNIT/ML 10 ML (CATH LAB USE ONLY) ONE (15:52)
--- NOTE | 2019-07-28 16:03 | Ultrasound Report ---
US guide intraoperative HISTORY: 84 years-old Male PERIPHERAL CASE COMPARISON: None TECHNIQUE: A single sonographic image was submitted. FINDINGS/IMPRESSION: No radiologist was present for the study. A insurance specialist provided ultrasound guidance. No diagnostic i mages were submitted. ACT 112: Negative or not required by law. The above report was generated using voice recognition software. It may contain grammatical, syntax o r spelling errors. Electronically signed by: Demetrio Mcneil M.D. 07/28/2019 4:02 PM
[2019-07-28] MEDS ORDERED: EPTIFIBATIDE 2 MG/ML 10 ML VIAL (CATH LAB USE ONLY) IV ONE (17:28)
[2019-07-28] MEDS ORDERED: PHENYLEPHRINE 100MCG/ML 5ML SYR ONE (18:05)
[2019-07-28] MEDS ORDERED: SUCCINYLCHOLINE 100MG/5ML SYR IV ONE (18:05)
--- NOTE | 2019-07-28 18:29 | Critical Care Consultation ---
Date of Consultation July 28, 2019 Assessment & Plan (1) Sepsis: Reason Critically Ill: 84-year-old male with dementia and PVD with ischemic ulcer of the right lower extremity with osteomyelitis/sepsis, presents postop for attempted but unsuccessful revascularization procedure, who was intub ated for agitation and combative. Presents to ICU mechanically ventilated. Neuro - Dementiachronic, does not appear to be on home meds -Appears to be still relatively self-sufficient with live-in assistance with family -Does become agitated and combative with sedation, has had history of aborted endovascular procedure in March due to this and required intubation while in PACU earlier today Sedated: Propofol Pain: Dilaudid as needed Cardiac - NSR on monitor, currently hemodynamically stable without vasopressors -Continue to monitor on telemetry Dyslipidemiawe will continue statin once extubated and appropriate to take p.o. Ischemia of right lower extremity/PVDstatus post angioplasty of lower extremity unilateral, complicated by unsuccessful revascularization of distal tibial v essels with limited flow to pedal vessels via collaterals -Patient is without dopplerable pedal pulses to the right lower extremity, lower extremity cool to touch -Ortho consulted, initially did not recommend surgery but revascularization. Given unsuccessful revascularization, will follow-up surgical recommendations -Patient currently on heparin drip -We will continue to monitor frequent Doppler pulses -Unfortunately due to patient's cognitive status, unsure if he would be a good candidate for potential amputation. Further discussion with family in regards to plan of care is needed and set to occur tomorrow. Respiratory - Mechanically ventilated following agitation and combativeness in PACU, will likely extubate tomorrow if patient tolerates SBT in a.m. -Current settings: 16/500/5/35%, adjust with routine ABGs -Continuous monitoring on pulse ox -Nebs as needed -We will keep sedated with propofol overnight GI - N.p.o. RENAL/LYTES - Creatinine within normal limits Continue Normosol at 80 mL/h Monitor electrolytes and replete as indicated - Foleystrict I's and O's ENDO - DM type IIon metformin, currently holding -Continue sliding scale No history of thyroid disease, TSH within normal limits HEME - H&H stable, monitor routine CBCs ID - Sepsissuspect osteo-myelitis source the right lower extremity, right second toe distal phalanx with potential osteomyelitis on MRI, necrotic ulcers to right first and second toes -Initial WBC 17, lactate 2.2; lactate now cleared, leukocytosis downtrending -No growth on preliminary blood cultures, will follow up final report -Continue daptomycin, cefepime LINES/IV ACCESS - PIV's, A-line DVT PROPHYLAXIS - SCDs, heparin drip I have personally spent 40 minutes of critical care time in the direct management of this patient. This is a life/limb threatening event. This includes time spent evaluating patient, direct bedside care, chart review, placing orders, interpretation of diagnostic studies, discussion with consultants, patient, and family members, as well as other required patient management activities. This time is exclusive of all separately billable procedures, and teaching time and separate from and in addition to any other critical care service time. Thank you for allowing us to participate in the care of this patient. Please refer to my attending physician's documentation for any further recommendations. (2) Dementia: (3) PAD (peripheral artery disease): (4) Diabetes mellitus: (5) Dyslipidemia: (6) Osteomyelitis: (7) Ischemia of lower extremity: Supervising Physician Co-Signing Physician Notes Patient seen and examined. Discussed with critical care [facility] as well as vascular surgery and interventional cardiology. EMR reviewed. 84-year-old male with dementia admitted 07/24 with an ischemic right foot. Patient has known peripheral arterial disease and a nonhealing lower extremity ulceration. Prior outpatient revascularization procedure in April 2019 was unable to be accomplished due to patient being agitated. Patient had progressive cyanosis and ulcerations of the right first and second toes. He received daptomycin and Rocephin in the emergency room for possible osteomyelitis. MRI was performed which confirmed potential or osteomyelitis changes. Orthopedics consult was obtained and did not recommend surgery but rather revascularization. Patient was taken today to the [employer] [facility] for attempted revascularization endovascularly. This was a complicated procedure without reestablishment of good flow. The procedure was briefly interrupted by a cardiac alert and the patient was transferred to the PACU with sheath in place. He apparently became agitated in PACU and there was concern about inadvertently removing his arterial sheaths therefore he was intubated and paralyzed. After the conclusion of the heart alert, the patient was brought back to the lab with continued attempts at revascularization by interventional cardiology and vascular surgery. These were unsuccessful and the patient is being brought back to the ICU intubated and sedated with sheath in place. Will keep intubated and sedated overnight but anticipate we should be able to extubate in the morning. Given his underlying neurocognitive dysfunction, lightening sedation may be somewhat problematic. We will continue broad- spectrum antibiotics for possible osteomyelitis. He will require long-term antibiotics. Family was concerned about patient's ability to tolerate a PICC line. They were concerned he would inadvertently remove the line which I think is a legitimate concern. Given his advanced dementia, unsalvageable lower extremity ischemia, osteomyelitis, and neurocognitive dysfunction, palliative care consultation may be appropriate. We will continue glycemic control per protocol. Hopefully the patient can be extubated and transferred out of the ICU to allow family to come and participate in discussions regarding goals of therapy for this patient. Agree with remaining assessment and plan as noted in the critical care [facility] assessment History of Present Illness Attending Physician: Mor Fernandez MD History of Present Illness Mr. Aguirre is a 84-year-old male with PMH of dementia, HTN, PAD, HLD, normal pressure hydrocephalus, DM type II. He was initially evaluated in March of this year by a gun profiler for bilateral pain his toes. An arterial duplex revealed multisegmental occlusions and bilateral lower extremities. Intervention was attempted in April of this year however the procedure was aborted due to patient's confusion with sedation and he was unable to lay flat at that time. Patient's ulceration was noted to be unchanged up until 2 weeks ago where family noted that he was having come increased complaints of the right foot while at rest. Repeat attempted intervention was discussed but was declined by patient. Patient presented to the emergency department 07/24 due to significantly increased right foot pain, and was noted to have a low-grade fever leukocytosis, and elevated lactate and was admitted for concerns for sepsis/osteomyelitis. He was started on broad-spectrum antibiotics, MRI confirmed osteomyelitis like changes of the first distal phalanx. Patient was taken earlier today the [employer] [facility] for an attempt at revascularization endovascularly, however it was unsuccessful in reestablishing good flow. During the first attempt this, the procedure was interrupted by a heart alert and patient was taken to PACU with sheath left inserted. He became very agitated and combative and required intubation during that time. He was taken back to the [employer] [facility] and attempts by interventional cardiology and vascular surgery were again on the next successful in reestablishing good flow. He now presents as a transfer to the ICU intubated and sedated with his sheath in place. Plan to continue medical management with likely extubation in the morning. Family has been contacted by primary team and plans to further discuss goals of care for patient. I did contact the patient's who directed me to the daughter for medical discussions. I had a discussion concerning the patient's CODE STATUS with the patient's daughter Rhonda. In conclusion, patient's daughter would like Mr. Aguirre to continue to be full code for the time being. Will likely need readdressed once long-term goals of care are better established with family whi ch will hopefully occur tomorrow. Will consult palliative care for assistance in this process. Allergies Allergy/AdvReac Type Severity Reaction Status Date / Time No Known Allergies Allergy Unknown Verified 07/25/19 00:39 Home Medications Home Medications Medication Instructions Recorded Confirmed Type acetaminophen 500 mg tablet 500 mg PO Q6H PRN 04/12/19 07/25/19 History amlodipine 5 mg tablet 5 mg PO DAILY 04/12/19 07/25/19 History aspirin 81 mg tablet,delayed 81 mg PO DAILY 04/12/19 07/25/19 History release atenolol 25 mg tablet 25 mg PO DAILY 04/12/19 07/25/19 History lorazepam 1 mg tablet 0.5 mg PO DAILY 04/12/19 07/25/19 History mecobalamin (vitamin B12) 1,000 500 mcg PO DAILY 04/12/19 07/25/19 History mcg chewable tablet metformin 500 mg tablet 1,000 mg PO DAILY 04/12/19 07/25/19 History simvastatin 20 mg tablet 20 mg PO DAILY 04/12/19 07/25/19 History prednisone See Taper PO DAILY 07/25/19 07/25/19 History Patient History Medical History (Updated 07/28/19 @ 20:28 by MIHIR Talbert) Anemia 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 DM II (diabetes mellitus, type II), controlled HTN (hypertension) Hypercholesteremia Ischemic toe ulcer PAD (peripheral artery disease) PAD (peripheral artery disease) SIRS (systemic inflammatory response syndrome) (Inactive) Surgical History Previous back surgery Social History Preferred Language: Palauan Communication Ability: Impaired Communication Tools: Letter Board, Picture Board and Facial Expression Visual Impairment: Limited Hearing Ability: Hard of Hearing Beliefs That Will Affect Care: None marital status: Current Living Situation: Spouse current occupational status: retired current occupation: shoes salesman Other Information That Helps Us Care for You: No Feels Safe at Home: Yes Safety Concerns: Feels Safe At This Time Smoking Status: Former smoker Do You Dip or Chew Tobacco: No ; Second Hand Exposure: No ; Hx Alcohol Use: No Hx Substance Use: No Childhood Exposure to Second-Hand Smoke: No caffeine: Yes (1 cup/day of coffee) during the past year weight has: decreased > 10 lbs Dental Care, Regularly: Yes Physical Activity Frequency: 1-2 Times per Week Sunscreen Use: Yes Do you think of yourself as: straight/heterosexual Sexual Activity: has been sexually active, but not for at least 12 months Review of Systems Review of Systems: Unobtainable due to cognitive status, Unobtainable due to endotracheal tube and Unobtainable due to reduced consciousness Physical Exam Constitutional: + frail appearing and + mechanically ventilated Eyes: PERRL, conjunctivae normal, anicteric sclerae ENMT: external ear and nose normal, oropharynx normal Neck: trachea midline, no thyromegaly Respiratory: symmetric chest movement; no respiratory distress and no labored breathing Auscultation: lungs clear to auscultation bilaterally Cardiovascular: RRR, no murmur, no edema Heart Sounds: normal S1 and normal S2 Vessels: no JVD No palpable pulses in right lower extremity and extremity is cool to touch, left lower extremity is warm but pulses are only dopplerable Gastrointestinal (Abdomen): normal bowel sounds, soft, nontender, no hepatosplenomegaly Musculoskeletal: Exam limited secondary to sedation, right lower extremity cool to touch and cyanotic Skin: Ischemic ulcers to the right first and second toes with cellulitis on the second toe. Neurologic: Unable to assess due to sedation Psychiatric: Unable to assess due to sedation Genitourinary: Indwelling Escoto catheter Results & Data Results & Data ([facility]) Vital Signs (Past 12 Hours) Vital Signs Temp Pulse Resp BP BP Pulse Ox 07/28/19 14:15 80 16 141/60 H 98 07/28/19 08:43 69 16 157/108 H 99 07/28/19 07:25 36.3 C L 64 18 169/73 H 97 Coding Level of Care Code Critical Care 1st 30-74 mins Diagnoses Sepsis A41.9 Dementia F03.90 PAD (peripheral artery disease) I73.9 Diabetes mellitus E11.9 Dyslipidemia E78.5 Osteomyelitis M86.9 Ischemia of lower extremity I99.8
[2019-07-28] MEDS: HEPARIN SODIUM/DEXTROSE 25,000 UNITS/500 ML BAG IV SCH (18:30)
[2019-07-28] MEDS ORDERED: HEPARIN SODIUM/DEXTROSE 25,000 UNITS/500 ML BAG IV SCH ×2 (18:45→19:00)
[2019-07-28] MEDS ORDERED: Heparin IV Standard *NO* Bolus IV SCH (18:46)
[2019-07-28] MEDS ORDERED: STAT IV Infusion **Titration per Protocol STA (18:57)
[2019-07-28] MEDS ORDERED: PROPOFOL BOLUS FROM BAG IV PRN (18:57)
[2019-07-28] MEDS: propofoL 1,000 MG/100 ML VIAL IV SCH ×2 (19:05→22:42)
[2019-07-28] MEDS: HYDROmorphone INJ 0.5 MG/0.5 ML SYR IV PRN (19:05)
[2019-07-28] MEDS: PROPOFOL IV EMULSION 10 MG/ML 100 ML VIAL IV ONE ×2 (19:07→19:57)
--- NOTE | 2019-07-28 19:21 | Operative Report ---
PG Post Operative Report Pre & Post Diagnosis Peripheral arterial disease Critical limb ischemia Procedure Operation Date: 07/28/19 09:00 Actual Procedures p Angio Extremity Unilateral - Asad Bender MD Operation Date: 07/28/19 15:00 Actual Procedures p Cineradiography w/Routine Exam - Asad Bender MD Ultrasound guided access x3 Mechanical closure of RT COTTON TIER antegrade stick Angioplasty SFA/popliteal artery Angioplasty anterior tibial artery Angioplasty peroneal artery Angioplasty posterior tibial artery Mechanical orbital atherectomy (CSI) anterior tibial artery Mechanical orbital atherectomy SFA Surgeon Kapil Bender MD Aluminum Welder Muray Estimated Blood Loss 25 Findings Aorta: No significant stenotic or aneurysmal disease. Left lower extremity: Common iliac -calcified, mild disease External iliac -calcified, mild Internal iliac -calcified without significant disease COTTON TIER -calcified, mild to moderate disease Profunda -mild disease SFA -mild to moderate diffuse calcified disease Right lower extremity: Common iliac -calcified without significant disease External iliac -calcified without significant Internal iliac -calcified without significant disease COTTON TIER -calcified, mild to moderate proximal stenosis SFA -heavily calcified diffuse moderate to severe disease up to 80% in mid segment Popliteal -calcified 80% proximal stenosis TPT -moderate diffuse calcified disease AT -calcified, 100% occluded proximally PT -heavily calcified, multisegment occlusions with trickle flow to ankle Peroneal -heavily calcified with multiple subtotal occlusions but patent to ankle providing collaterals to remnant of LUPIS, METAL CONTROL COORDINATOR Specimens None Drains None Anesthesia Type General Complications Obstructed distal tibial vessels with diminished pedal flow Disposition Disposition: Surgical ICU Description of Procedure Left radial artery access under ultrasound guidance with placement of short 5 Romansh sheath Initial aorta/bilateral iliac angiography via pigtail catheter navigated into abdominal aorta Right lower extremity angiography via quick cross catheter placed into SFA Left common femoral artery access obtained under ultrasound guidance with microp uncture needle with placement of short 5 Fr sheath Up and over with rim catheter with placement of 65 cm 6 Fr destination sheath to right SFA 0.14 command wire navigated into mid to distal anterior tibial artery Wire exchanged for Viper wire Mechanical atherectomy of anterior tibial with 1.25 micro-crown Anterior tibial artery angioplasty with 2.5 balloon Post atherectomy poor distal flow in all tibials Proximal peroneal dilated with 2.0 balloon, unable to pass balloon into mid segment Multiple attempts to wire into distal METAL CONTROL COORDINATOR with command, whisper, astato wire. With wire in mid segment unable to pass Corsair, multiple 1.5 balloons past proximal lesion. Proximal lesion dilated aggressively with 1.5 balloon Atherectomy to mid to distal SFA and popliteal with CSI 1.5 solid crown Angioplasty to mid to distal SFA, popliteal with 5.0 ultrascore scoring balloon SFA, popliteal expanded appropriately with angioplasty but still limited flow due to poor outflow and tibial vessels No further attempts made to dilate posterior tibial but unable to pass balloon post proximal segment At that point there was a cardiac emergency requiring irruption of the case. Radial sheath removed, left COTTON TIER sheath left in place Post cardiac emergency patient with severe right lower extremity pain, foot was cool without dopplerable pulses and brought back to Marketing Analytics Lead where was electively intubated by anesthesia. Antegrade right COTTON TIER access obtained under ultrasound guidance with micropuncture with 5 Fr sheath placed Multiple attempts made for retrograde METAL CONTROL COORDINATOR access under ultrasound but unsuccessful Was able to pass a command wire into mid to distal METAL CONTROL COORDINATOR. With the aid of a Corsair, multiple 1.5 and 2.0 balloons, METAL CONTROL COORDINATOR dilated to mid segment but no further flow noted Peroneal was then wired with command, whisper, army helicopter pilot 50. Mid to proximal aspect of peroneal dilated up to 2.5 but again minimal flow in more distal vessel Unable to pass 0.14, 0.35 wire into distal anterior tibial Given multiple rounds of IC vasodilators as well as Integrilin Final result with slow three-vessel runoff to mid hopkins. Minimal flow via collaterals to pedal vessels. At completion of case non-dopplerable PT, DP pulses. Dopplerable pulses over mid METAL CONTROL COORDINATOR, LUPIS. During procedure Case discussed with vascular surgery. Patient not thought to have targets for distal bypass Mechanical closure with minx device to antegrade 5 Fr right COTTON TIER sheath. Left 6 Fr COTTON TIER sheath left in place Patient taken to ICU for continued monitoring Family updated on concern for acute loss of limb. Summary: 1. Left lower extremitypatent iliacs, COTTON TIER, mild to moderate diffuse heavily calcified SFA disease. Angiography of tibial vessels not completed 2. Right lower extremityheavily calcified, severe diffuse SFA and popliteal disease up to 80%. Occluded proximal anterior tibial. Peroneal with multiple subtotal occlusions to the ankle. METAL CONTROL COORDINATOR heavily calcified with multisegment occlusions and trickle flow to plantar vessels. 3. Angioplasty and mechanical (orbital, CSI 1.5 solid) atherectomy of mid SFA, popliteal artery 4. Angioplasty and mechanical (orbital, CSI 1.25 micro) atherectomy of proximal anterior tibial artery 5. Angioplasty of proximal to mid posterior tibial artery 6. Angioplasty of proximal to mid peroneal artery 7. Unsuccessful revascularization of distal tibial vessels with limited flow to pedal vessels via collaterals Recommendations: Close monitoring in ICU overnight Continue heparin infusion for last 24 hours Repeat arterial duplex in a.m. Plan to remove arterial sheath in a.m. I attest to the content of the Intraoperative Record and any orders documented therein. Any exceptions are noted below.
--- NOTE | 2019-07-28 19:41 | Endovascular Procedure Note ---
PG Endovascular Procedure Rpt Pre & Post Diagnosis Operation Date: 07/28/19 09:00 <No data on this case meets the specified criteria> Operation Date: 07/28/19 15:00 <No data on this case meets the specified criteria> I identified the patient and participated in the time-out.: Yes Procedure Operation Date: 07/28/19 09:00 Actual Procedures p Angio Extremity Unilateral - Asad Bender MD Operation Date: 07/28/19 15:00 Actual Procedures p Cineradiography w/Routine Exam - Asad Bender MD Ultrasound guided access x3 Mechanical closure of RT HEAD OF INTEGRATED MEDIA antegrade stick Angioplasty SFA/popliteal artery Angioplasty anterior tibial artery Angioplasty peroneal artery Angioplasty posterior tibial artery Mechanical orbital atherectomy (CSI) anterior tibial artery Mechanical orbital atherectomy SFA Surgeon Kapil Bender MD Brusher Warp Corie Estimated Blood Loss 25 Findings See Below Aorta: No significant stenotic or aneurysmal disease. Left lower extremity: Common iliac -calcified, mild disease External iliac -calcified, mild Internal iliac -calcified without significant disease HEAD OF INTEGRATED [employer]IA -calcified, mild to moderate disease Profunda -mild disease SFA -mild to moderate diffuse calcified disease Right lower extremity: Common iliac -calcified without significant disease External iliac -calcified without significant Internal iliac -calcified without significant disease HEAD OF INTEGRATED [employer]IA -calcified, mild to moderate proximal stenosis SFA -heavily calcified diffuse moderate to severe disease up to 80% in mid segment Popliteal -calcified 80% proximal stenosis TPT -moderate diffuse calcified disease AT -calcified, 100% occluded proximally PT -heavily calcified, multisegment occlusions with trickle flow to ankle Peroneal -heavily calcified with multiple subtotal occlusions but patent to ankle providing collaterals to remnant of LUPIS, RETAIL LOAN OFFICER Anesthesia Type General Contrast Contrast: 196 Complications Incomplete revascularization with limited flow to pedal vessels via collaterals. Disposition Disposition: Surgical ICU Description of Procedure Left radial artery access under ultrasound guidance with placement of short 5 Trinidadian sheath Initial aorta/bilateral iliac angiography via pigtail catheter navigated into abdominal aorta Right lower extremity angiography via quick cross catheter placed into SFA Left common femoral artery access obtained under ultrasound guidance with micropuncture needle with placement of short 5 Fr sheath Up and over with rim catheter with placement of 65 cm 6 Fr destination sheath to right SFA 0.14 command wire navigated into mid to distal anterior tibial artery Wire exchanged for Viper wire Mechanical atherectomy of anterior tibial with 1.25 micro-crown Anterior tibial artery angioplasty with 2.5 balloon Post atherectomy poor distal flow in all tibials Proximal peroneal dilated with 2.0 balloon, unable to pass balloon into mid segment Multiple attempts to wire into distal RETAIL LOAN OFFICER with jarrett oquendo astato wire. With wire in mid segment unable to pass Corsair, multiple 1.5 balloons past proximal lesion. Proximal lesion dilated aggressively with 1.5 balloon Atherectomy to mid to distal SFA and popliteal with CSI 1.5 solid crown Angioplasty to mid to distal SFA, popliteal with 5.0 ultrascore scoring balloon SFA, popliteal expanded appropriately with angioplasty but still limited flow due to poor outflow and tibial vessels No further attempts made to dilate posterior tibial but unable to pass balloon post proximal segment At that point there was a cardiac emergency requiring irruption of the case. Radial sheath removed, left HEAD OF INTEGRATED [employer] sheath left in place Post cardiac emergency patient with severe right lower extremity pain, foot was cool without dopplerable pulses and brought back to Housekeeping Cleaner where was electively intubated by anesthesia. Antegrade right HEAD OF INTEGRATED MEDIA access obtained under ultrasound guidance with micropuncture with 5 Fr sheath placed Multiple attempts made for retrograde RETAIL LOAN OFFICER access under ultrasound but unsuccessful Was able to pass a command wire into mid to distal RETAIL LOAN OFFICER. With the aid of a Corsair, multiple 1.5 and 2.0 balloons, RETAIL LOAN OFFICER dilated to mid segment but no further flow noted Peroneal was then wired with jarrett oquendo pilot 50. Mid to proximal aspect of peroneal dilated up to 2.5 but again minimal flow in more distal vessel Unable to pass 0.14, 0.35 wire into distal anterior tibial Given multiple rounds of IC vasodilators as well as Integrilin Final result with slow three-vessel runoff to mid hopkins. Minimal flow via collaterals to pedal vessels. At completion of case non-dopplerable PT, DP pulses. Dopplerable pulses over mid RETAIL LOAN OFFICER, LUPIS. During procedure Case discussed with vascular surgery. Patient not thought to have targets for distal bypass Mechanical closure with minx device to antegrade 5 Fr right HEAD OF [employer]TEGRATED [employer] sheath. Left 6 Fr HEAD OF [employer]TEGRATED [employer] sheath left in place Patient taken to ICU for continued monitoring Family updated on concern for acute loss of limb. Summary: 1. Left lower extremitypatent iliacs, HEAD OF INTEGRATED MEDIA, mild to moderate diffuse heavily calcified SFA disease. Angiography of tibial vessels not completed 2. Right lower extremityheavily calcified, severe diffuse SFA and popliteal disease up to 80%. Occluded proximal anterior tibial. Peroneal with multiple subtotal occlusions to the ankle. RETAIL LOAN OFFICER heavily calcified with multisegment occlusions and trickle flow to plantar vessels. 3. Angioplasty and mechanical (orbital, CSI 1.5 solid) atherectomy of mid SFA, popliteal artery 4. Angioplasty and mechanical (orbital, CSI 1.25 micro) atherectomy of proximal anterior tibial artery 5. Angioplasty of proximal to mid posterior tibial artery 6. Angioplasty of proximal to mid peroneal artery 7. Unsuccessful revascularization of distal tibial vessels with limited flow to pedal vessels via collaterals I attest to the content of the Intraoperative Record and any orders documented therein. Any exceptions are noted below. Vascular Charges Angiography/Venography Procedure 1: Angiography/Venography charges: [id number] Aortography, abd + b/l iliofem LE, catheter, radiological S&I Lower Extremity Interventions Procedure 1: Lower Extremity Intervention charges: [id number] Atherectomy, femoral, popliteal artery(s), unilateral Procedure 2: Lower Extremity Intervention charges: [id number] Atherectomy, tibial, peroneal artery, unilateral, initial vesse Procedure 3: Lower Extremity Intervention charges: [id number] Angioplasty, tibial, peroneal artery, UL each add'l vessel Procedure 4: Lower Extremity Intervention charges: [id number] Angioplasty, tibial, peroneal artery, unilateral, initial vessel Additional Services Procedure 1: Additional Services Charges: [id number] Ultrasound guidance - vascular access Procedure 2: Additional Services Charges: [id number] Ultrasound guidance - vascular access
[2019-07-28] MEDS ORDERED: Nursing to Pharmacy Communication SCH (20:00)
[2019-07-28] MEDS: Heparin IV Standard *NO* Bolus IV SCH (20:12)
[2019-07-28] MEDS: NORMOSOL-R 1,000 ML IV SCH (22:17)
[2019-07-29] MEDS: INSULIN ASPART 100 UNITS/ML 3 ML PEN SC SCH ×4 (00:42→18:29)
[2019-07-29] MEDS: HYDROmorphone INJ 0.5 MG/0.5 ML SYR IV PRN ×2 (03:30→08:58)
[2019-07-29] MEDS: propofoL 1,000 MG/100 ML VIAL IV SCH ×3 (03:30→20:48)
[2019-07-29] MEDS ORDERED: ACETAMINOPHEN 1,000 MG/100 ML VIAL IV STA ×2 (04:08→12:05)
[2019-07-29 05:51] LABS: iSTAT Arterial Blood Gas HCO3 16 meg/L (19-24); iSTAT Arterial Blood Gas pCO2 21 mmHg (35-46); iSTAT Arterial Blood Gas pH 7.49 (7.35-7.45); iSTAT Arterial Blood Gas pO2 98 mmHg (80-95); iSTAT Carbon Dioxide 16 mmol/L (24-31); iSTAT FiO2 35 %; iSTAT Site L Brachial
[2019-07-29 07:45] LABS: Basophils # (auto) 0.01 K/uL (0-0.2); Basophils % (auto) 0.1 %; Eosinophils # (auto) 0.02 K/uL (0-0.5); Eosinophils % (auto) 0.1 %; Hematocrit (blood only) 33.5 % (42-52); Hemoglobin 11.1 g/dL (14.0-18.0); Immature Granulocytes # (auto) 0.04 K/uL (0.00-0.02); Immature Granulocytes % (auto) 0.2 %; Lymphocytes # (auto) 1.34 K/uL (1.2-3.4); Lymphocytes % (auto) 8.1 %; Mean Corpuscular Hemoglobin 31.2 pg (25-34); Mean Corpuscular Hgb Conc 33.1 g/dL (32-36); Mean Corpuscular Volume 94.1 fL (80-100); Mean Platelet Volume 10.4 fL (7.4-10.4); Monocytes # (auto) 1.54 K/uL (0.11-0.59); Monocytes % (auto) 9.3 %; Neutrophils % (auto) 82.2 %; Platelet Count 260 K/uL (130-400); RDW Coefficient of Variation 12.8 % (11.5-14.5); Red Blood Count 3.56 M/uL (4.7-6.1); White Blood Count 16.55 K/uL (4.8-10.8)
[2019-07-29 08:15] LABS: BUN Creatinine Ratio 14.9 (10-20); Calcium 7.6 mg/dl (8.5-10.1); Creatinine Clr Calc Pharmacy 41.6 ml/min; Est GFR (Non-African American) 51.8; Magnesium 2.2 mg/dl (1.8-2.4); Phosphorus 4.6 mg/dl (2.5-4.9)
[2019-07-29] MEDS: ATENOLOL 25 MG TABLET PO SCH (08:54)
[2019-07-29] MEDS: AMLODIPINE BESYLATE 5 MG TAB PO SCH (08:54)
[2019-07-29] MEDS: DAPTOmycin 375 MG in SYRINGE 0 ML IV SCH (08:55)
[2019-07-29] MEDS: CEFEPIME 2,000 MG in SYRINGE 7.5 ML IV SCH ×2 (08:55→20:46)
[2019-07-29 09:17] LABS: Partial Thromboplastin Ratio > 5.0
[2019-07-29 09:20] LABS: Partial Thromboplastin Time > 139.0 Seconds (21.0-31.0)
--- NOTE | 2019-07-29 09:39 | Vascular Medicine ProgressNote ---
Date of Service July 29, 2019 Assessment & Plan (1) PAD (peripheral artery disease): 2. RT foot cellulitis, ulceration possible osteo 3. LT foot ulceration. 4. Type 2 diabetes on oral therapy 5. Dementia 6. Anemia Hemodynamically stable overnight. Right foot warm this morning and appears better perfused with borderline dopplerable PT pulse. No apparent access site complications. Overall my concern for acute limb threatening ischemia is less today. Long-term still remain concerned that achieved perfusion may not be adequate to heal ulcers/infection. Unfortunately does not really have additional revascularization options. For now-- -- continue heparin infusion. plan to discontinue tomorrow. -- repeat arterial duplex -- post heparin start PAD dose Xarelto 2.5 mg BID -- continued wound care and antibiotics per primary team -- no plans for additional intervention. Extubation when appropriate per cutlet maker pork. Will follow Subjective Remains intubated. Femoral sheath removed overnight. No other events. PT pulse dopplerable this morning. Review of Systems Review of Systems: Unobtainable due to endotracheal tube Physical Exam Physical Exam: General: Intubated, sedated HEENT: Sclerae anicteric, mucous membranes moist Lungs: Clear to auscultation anteriorly Cardiac: Regular rate and rhythm, no murmurs. Abdomen: Soft, nontender Extremities: Femoral access sites soft without significant hematoma or ecchymosis, pulses intact. Skin: Right lower extremity warm, diminished capillary refill, unchanged ulceration involving nailbed of great toe and medial aspect of second digit, no surrounding erythema or drainage. Nonpalpable DP/PT on left. Left lower extremity warm fifth digit dressing in place Results & Data Vital Signs (Past 12 Hours) Vital Signs Pulse Resp BP Pulse Ox 07/29/19 09:06 77 112/42 L 96 07/29/19 08:36 78 114/50 L 98 07/29/19 08:06 76 111/47 L 98 07/29/19 07:35 75 127/46 L 99 07/29/19 07:20 76 20 95 07/29/19 07:06 72 113/40 L 98 07/29/19 06:35 73 128/45 L 97 07/29/19 06:05 68 124/47 L 100 07/29/19 05:35 70 117/46 L 100 07/29/19 05:18 77 16 100 07/29/19 05:05 70 110/42 L 100 07/29/19 04:35 74 108/46 L 100 07/29/19 04:05 76 116/49 L 100 07/29/19 03:43 80 108/47 L 100 07/29/19 03:35 83 27 H 84/48 L 100 07/29/19 03:06 85 104/69 94 07/29/19 02:36 83 130/45 L 97 07/29/19 02:06 81 114/58 L 95 07/29/19 01:37 82 136/110 H 90 07/29/19 01:05 79 137/125 H 92 07/29/19 00:35 80 124/67 100 07/29/19 00:05 79 21 108/84 100 07/29/19 00:01 76 108/52 L 100 07/28/19 23:36 78 108/52 L 100 07/28/19 23:05 79 128/58 L 99 07/28/19 22:35 79 124/57 L 100 07/28/19 22:30 77 100 07/28/19 22:20 78 100 07/28/19 22:10 75 100 07/28/19 22:05 76 106/49 L 100 07/28/19 22:00 77 100 07/28/19 21:51 74 100 07/28/19 21:50 76 110/55 L 100 07/28/19 21:40 77 100 PG Care Time/CCT Total # of Minutes Spent Total Time Spent with Patient: Total time spent is greater than 50% in coordination of care (as documented) at patient's floor/unit and/or counseling patient: Coding Level of Care Code 98418 Subseq Hosp Care Lvl 3 Diagnoses PAD (peripheral artery disease) I73.9
--- NOTE | 2019-07-29 10:42 | Critical Care Progress Note ---
Date of Service July 29, 2019 Assessment & Plan (1) Sepsis: Reason Critically Ill: 84-year-old male with dementia and PVD with ischemic ulcer of the right lower extremity with osteomyelitis/sepsis, presents postop for attempted but unsuccessful revascularization procedure, who was intubated for agitation and combative. Presents to ICU mechanically ventilated. Neuro - Dementiachronic, does not appear to be on home meds -Appears to be still relatively self-sufficient with live-in assistance with family -Currently intubated and sedated on propofol. We will try to wean sedation and extubate. Sedated: Propofol Pain: Dilaudid as needed Cardiac - NSR on monitor, currently hemodynamically stable without vasopressors -Continue to monitor on telemetry Dyslipidemiawe will continue statin once extubated and appropriate to take p.o. Ischemia of right lower extremity/PVDstatus post angioplasty of lower extremity unilateral, complicated by unsuccessful revascularization of distal tibial vessels with limited flow to pedal vessels via collaterals -Patient is without dopplerable pedal pulses to the right lower extremity, lower extremity cool to touch -Ortho consulted, initially did not recommend surgery but revascularization. Given unsuccessful revascularization, will follow-up surgical recommendations -Patient currently on heparin drip -We will continue to monitor frequent Doppler pulses -Unfortunately due to patient's cognitive status, unsure if he would be a good candidate for potential amputation. -Interventional cardiology following. Appreciate the recommendations. Heparin drip off tomorrow. Respiratory - Mechanically ventilated following agitation and combativeness in PACU. -Continuous monitoring on pulse ox -Nebs as needed -We will try to extubate later today. GI - N.p.o. RENAL/LYTES - Creatinine within normal limits Continue Normosol at 80 mL/h Monitor electrolytes and replete as indicated CK mildly elevated likely related to ischemic limb and possibly daptomycin. Will follow. - Foleystrict I's and O's ENDO - DM type IIon metformin, currently holding -Continue sliding scale No history of thyroid disease, TSH within normal limits HEME - H&H stable, monitor routine CBCs ID - Sepsissuspect osteo-myelitis source the right lower extremity, right second toe distal phalanx with potential osteomyelitis on MRI, necrotic ulcers to right first and second toes -No growth on preliminary blood cultures, will follow up final report -Continue daptomycin, cefepime LINES/IV ACCESS - PIV's, A-line DVT PROPHYLAXIS - SCDs, heparin drip I have personally spent 32 minutes of critical care time in the direct management of this patient. This is a life/limb threatening event. This includes time spent evaluating patient, direct bedside care, chart review, placing orders, interpretation of diagnostic studies, discussion with consultants, patient, and family members, as well as other required patient management activities. This time is exclusive of all separately billable procedures, and teaching time and separate from and in addition to any other critical care service time. Thank you for allowing us to participate in the care of this patient. Please refer to my attending physician's documentation for any further recommendations. (2) Dementia: (3) PAD (peripheral artery disease): (4) Diabetes mellitus: (5) Dyslipidemia: (6) Osteomyelitis: (7) Ischemia of lower extremity: Admission and Anticipated Discharge Date Admission Date: July 25, 2019 Subjective Patient is currently intubated and sedated. Unable to assess neurological exam or review of systems due to intubation status. No significant over night events per the RN. Physical Exam Constitutional: + frail appearing and + mechanically ventilated Eyes: PERRL, conjunctivae normal, anicteric sclerae ENMT: external ear and nose normal, oropharynx normal Neck: trachea midline, no thyromegaly Respiratory: symmetric chest movement; no respiratory distress and no labored breathing Auscultation: lungs clear to auscultation bilaterally Cardiovascular: RRR, no murmur, no edema Heart Sounds: normal S1 and normal S2 Vessels: no JVD No palpable pulses in right lower extremity and extremity is cool to touch, left lower extremity is warm but pulses are only dopplerable Gastrointestinal (Abdomen): normal bowel sounds, soft, nontender, no hepatosplenomegaly Musculoskeletal: Exam limited secondary to sedation, right lower extremity cool to touch and cyanotic Skin: Ischemic ulcers to the right first and second toes with cellulitis on the second toe. Neurologic: Unable to assess due to sedation Psychiatric: Unable to assess due to sedation Genitourinary: Indwelling Escoto catheter Results & Data Results & Data ([facility] Vital Signs (Past 12 Hours) Vital Signs Pulse Resp BP Pulse Ox 07/29/19 09:06 77 112/42 L 96 07/29/19 08:36 78 114/50 L 98 07/29/19 08:06 76 111/47 L 98 07/29/19 07:35 75 127/46 L 99 07/29/19 07:20 76 20 95 07/29/19 07:06 72 113/40 L 98 07/29/19 06:35 73 128/45 L 97 07/29/19 06:05 68 124/47 L 100 07/29/19 05:35 70 117/46 L 100 07/29/19 05:18 77 16 100 07/29/19 05:05 70 110/42 L 100 07/29/19 04:35 74 108/46 L 100 07/29/19 04:05 76 116/49 L 100 07/29/19 03:43 80 108/47 L 100 07/29/19 03:35 83 27 H 84/48 L 100 07/29/19 03:06 85 104/69 94 07/29/19 02:36 83 130/45 L 97 07/29/19 02:06 81 114/58 L 95 07/29/19 01:37 82 136/110 H 90 07/29/19 01:05 79 137/125 H 92 07/29/19 00:35 80 124/67 100 07/29/19 00:05 79 21 108/84 100 07/29/19 00:01 76 108/52 L 100 07/28/19 23:36 78 108/52 L 100 07/28/19 23:05 79 128/58 L 99 Coding Level of Care Code Critical Care 1st 30-74 mins Diagnoses Sepsis A41.9 Dementia F03.90 PAD (peripheral artery disease) I73.9 Diabetes mellitus E11.9 Dyslipidemia E78.5 Osteomyelitis M86.9 Ischemia of lower extremity I99.8 Time Spent (min) 32
[2019-07-29 11:10] LABS: Partial Thromboplastin Ratio 1.9
[2019-07-29] MEDS: NORMOSOL-R 1,000 ML IV SCH (11:38)
[2019-07-29 12:03] LABS: Partial Thromboplastin Time 54.2 Seconds (21.0-31.0)
--- NOTE | 2019-07-29 12:53 | XRay Report ---
XR chest 1V portable CLINICAL HISTORY: intubated patient COMPARISON STUDY: Chest radiograph July 25, 2019. FINDINGS: Tip of the endotracheal tube is 2.2 cm above the aakash. There is no pneumothorax or pleura l effusion. There is no evidence for pulmonary edema. There is possible mild left basilar opacity. IMPRESSION: 1. Tip of endotracheal tube 2.2 cm above the aakash. 3. Possible left basilar opacity. 3. No evidence for pulmonary edema. ACT 112: Negative or not required by law. Electronically signed by: Papo Roberson M.D. 07/29/2019 12:52 PM
[2019-07-29] MEDS ORDERED: STAT IV Infusion **Titration per Protocol STA ×2 (13:14→17:20)
[2019-07-29] MEDS ORDERED: NORMOSOL-R 500 ML IV ONE (13:14)
[2019-07-29] MEDS ORDERED: FENTANYL BOLUS FROM BAG IV PRN (13:14)
--- NOTE | 2019-07-29 13:20 | Communication Note ---
Date of Service: July 29, 2019 Patient having worsening hypotension. Blood pressure is currently 88/42. Lactate rising 2.6. Bicarb this morning was 19. Urine output is dropping. We will switch his sedation from propofol to Precedex and fentanyl. Will discuss with family goals of care. If he continues to have ongoing hypotension, he will need a central line and possibly an arterial line. We will give a 500 mL bolus of Normosol at this point. This was also communicated to the patient's bedside RN and to the hospitalist. Coding Level of Care Code Critical Care 1st 30-74 mins Time Spent (min) 15
[2019-07-29] MEDS: DEXMEDETOMIDINE HCL 200 MCG in SODIUM CHLORIDE 0.9% 48 ML IV SCH ×2 (13:28→18:13)
--- NOTE | 2019-07-29 13:30 | Hospitalist Progress Note ---
Date of Service July 29, 2019 Assessment & Plan (1) Severe sepsis: possible osteomyelitis Peripheral Arterial Disease (PAD), concern of limb ischemia -SIRS plus lactic acid elevation, admitting physician concerned for Right 1st and 2 nd Toe cellulitis -empirically started on daptomycin and cefepime (continue for now) -Duplex doppler arterial of lower extremity on 07/25/2019 1. Diffuse atherosclerotic vascular disease. 2. Mildly elevated peak systolic velocities within the superficial femoral artery suggestive of mild stenosis. 3. No arterial occlusion. 4. Monophasic three-vessel runoff. -vascular Dr. Octavio Bender suggested angiography of the right leg on Wednesday07/28/2019 -MRI of right foot 07/25/2019 concerning for possible osteomyelitis 1. Limited exam secondary to extensive motion artifact. 2. Extensive bone marrow edema of the first distal phalanx deep to the soft tissue ulcer is noted with with suggestion of mildly decreased T1 marrow signal suggestive of reactive osteitis versus early osteomyelitis. No definitive osseous erosion identified. 3. Bone marrow edema of the second distal phalanx with normal-appearing T1 marrow signal is likely reactive. 4. Nonspecific subcutaneous and intramuscular edema of the forefoot. -07/26/2019 updates: had long conversation with patient's Jayashree [phone] and daughter Rhonda Madden [phone] in regards to obtaining orthopedic consult and possible needs of oysterman IV antibiotics of osteomyelitis present of the right big toe - Rhonda gave permission for PICC line or midline if needed because of patient's dementia. prn pain medications adjusted on 07/26/2019 -07/27/2019: orthopedics service not advising and surgical interventions, patient seen by wound care, on IV antibiotics for now -07/28/2019: patient had unsuccessful right leg angiography and then went to ICU level care while intubated and with heparin IV to prevent right leg ischemia -07/29/2019: Patient in ICU level of care. Patient remains intubated. Currently, critical care doctor obtained permission to place central line and arterial line from patient's daughter Rhonda because of worsening sepsis. Hospitalist have called hospital web operations administrator to allow for patient's families to visit him in this critical care time. on antibiotics and IV heparin (2) Dementia: (3) Anemia: Acute on chronic anemia -hemoglobin drop from baseline, occult GI bleed on rectal exam as per previous medical provider, FOBT positive -Gastroenterology service evaluated on 07/25/2019 but patient's family deferred any EGD or colonoscopy at this time to avoid excessive anesthesia in case patient needs right foot procedure -holding home dose aspirin for now -no acute bleeding since that time Hypertension Hyperlipidemia -blood pressure medications held because of sepsis Type 2 diabetes mellitus without oysterman curren use of insulin -hemoglobin A1c of 6.21 Jun 2019 -hold home barney metformin -continue sliding scale insulin while inpatient Past tobacco use DVT prophylaxis: heparin drip IV Full code Family Ms. Rhonda Madden, (daughter, primary contact) #[phone]. Ms. Jayashree Aguirre (, secondary contact) at [phone]. Admission and Anticipated Discharge Date Admission Date: July 25, 2019 Subjective Patient in ICU level of care. Patient remains intubated. Currently, critical care doctor obtained permission to place central line and arterial line from patient's daughter Rhonda because of worsening sepsis. Hospitalist have called hospital web operations administrator to allow for patient's families to visit him in this c ritical care time. Review of Systems Review of Systems: All systems reviewed & are unremarkable except as noted in Subjective Physical Exam Constitutional: intubated, tachypneic, tachycardic, sedated Respiratory: intubated, tachypneic, tachycardic, sedated Gastrointestinal (Abdomen): intubated, tachypneic, tachycardic, sedated Neurologic: intubated, tachypneic, tachycardic, sedated Genitourinary: ferro Results & Data Results & Data ([facility]) Vital Signs (Past 12 Hours) Vital Signs Pulse Resp BP Pulse Ox 07/29/19 11:00 103 H 84 L 07/29/19 10:55 99 H 38 H 90 07/29/19 10:53 97 H 108/87 89 L 07/29/19 09:36 73 124/44 L 96 07/29/19 09:06 77 112/42 L 96 07/29/19 08:36 78 114/50 L 98 07/29/19 08:06 76 111/47 L 98 07/29/19 07:35 75 127/46 L 99 07/29/19 07:20 76 20 95 07/29/19 07:06 72 113/40 L 98 07/29/19 06:35 73 128/45 L 97 07/29/19 06:05 68 124/47 L 100 07/29/19 05:35 70 117/46 L 100 07/29/19 05:18 77 16 100 07/29/19 05:05 70 110/42 L 100 07/29/19 04:35 74 108/46 L 100 07/29/19 04:05 76 116/49 L 100 07/29/19 03:43 80 108/47 L 100 07/29/19 03:35 83 27 H 84/48 L 100 07/29/19 03:06 85 104/69 94 07/29/19 02:36 83 130/45 L 97 07/29/19 02:06 81 114/58 L 95 07/29/19 01:37 82 136/110 H 90
[2019-07-29] MEDS: fentaNYL DRIP 1,250 MCG/250 ML BAG IV SCH (13:42)
--- NOTE | 2019-07-29 17:23 | Procedure Note ---
Procedure Note Date of Service July 29, 2019 Note ARTERIAL LINE PROCEDURE NOTE: Procedure: Arterial Line Placement Indication: Monitoring on Pressors Anesthesia: 50 mcg fentanyl/no lidocaine 1% Consent was signed and placed on the chart prior to procedure. Indication, risks, and benefits were explained at length. A time-out was completed verifying correct patient, procedure, site, positioning, and implant(s) or special equipment if applicable. Patients left wrist was prepped and draped in the usual sterile fashion. Ultrasound guidance was used to aid needle placement. A 18g Arrow arterial line was introduced into the left artery. Catheter was threaded, and the needle was removed with appropriate blood return. Good waveform was observed. The patient tolerated the procedure well. Blood Loss: Minimal Complications: None Coding CPT Codes Tubes, Drains, and Vasc Access - Tubes, Drains, and Vasc Access: [id number] Ultrasound Guidance For Vascular ([id number]) Tubes, Drains, and Vasc Access - Tubes, Drains, and Vasc Access: [id number] Place Catheter In Artery ([id number]) [facility] [place] Codes (Charges) Tubes, Drains, and Vasc Access Procedure 1: Tubes, Drains, and Vasc Access: [id number] Ultrasound Guidance For Vascular Procedure 2: Tubes, Drains, and Vasc Access: [id number] Place Catheter In Artery
--- NOTE | 2019-07-29 17:24 | Procedure Note ---
Procedure Note Date of Service July 29, 2019 Note INTERNAL JUGULAR CENTRAL LINE PROCEDURE NOTE: Procedure: Internal Jugular Central Line Placement Indication: Central Drug Administration, Poor Venous Access, Multiple Lab Draws Necessary, etc. Anesthesia: 8 lidocaine 1% Consent was signed and placed on the chart prior to procedure. Indication, risks, and benefits were explained at length. A time-out was completed verifying correct patient, procedure, site, positioning, and implants(s) or special equipment if applicable. Patients right neck was cleansed and draped in the typical sterile fashion using Chloraprep. The Internal Jugular Vein and Carotid Artery were identified using ultrasound. The superficial tissue was anesthetized using 8 mL of 1% lidocaine without epinephrine under direct visualization with the ultrasound. After adequate anesthetization was achieved, the Internal Jugular vein was cannulated under direct ultrasound guidance using an introducer needle on a syringe. Good venous blood return was maintained prior to removal of syringe from introducer needle. Using Seldinger Technique, a guide wire was advanced through the introducer needle without resistance. The introducer needle was removed and ultrasound images were obtained of the guide wire within the Internal Jugular Vein and saved to the patients medical record. A small incision was made in penetrating fashion at the guide wire insertion site utilizing an 11 blade scalpel. The dilator was advanced to the vessel without resistance. The dilator was exchanged for the triple lumen catheter which was advanced into the vessel without resistance. The guide wire was removed intact from the catheter without issue. Claves were placed on each catheter tip with confirmation of good blood flow from each lumen. Each port was easily flushed with sterile saline. The catheter was placed at 18 cm and [address] in place. BioPatch was applied to the catheter and a sterile Tegaderm dressing was applied over the catheter with careful attention to sterility. Patient tolerated procedure well. No immediate complications were met. Post procedure x-ray was completed, placement was appropriate and no pneumothorax was noted. Images obtained are saved for permanent record Procedural Ultrasound Guidance used Images obtained are saved for permanent record. Coding CPT Codes Tubes, Drains, and Vasc Access - Tubes, Drains, and Vasc Access: [id number] Place catheter in vein superior or inferior vena cava ([id number]) Tubes, Drains, and Vasc Access - Tubes, Drains, and Vasc Access: [id number] Ultrasound Guidance For Vascular ([id number]) [facility] [place] Procedure Codes (Charges) Tubes, Drains, and Vasc Access Procedure 3: Tubes, Drains, and Vasc Access: [id number] Place catheter in vein superior or inferior vena cava Procedure 4: Tubes, Drains, and Vasc Access: [id number] Ultrasound Guidance For Vascular
[2019-07-29] MEDS ORDERED: Nursing to Pharmacy Communication SCH (17:45)
[2019-07-29] MEDS: FAMOTIDINE 20 MG in SYRINGE 3 ML IV SCH (18:14)
[2019-07-29] MEDS: PHENYLEPHRINE HCL 20 MG in DEXTROSE 5% 500 ML IV SCH (18:14)
--- NOTE | 2019-07-29 18:19 | XRay Report ---
XR chest 1V portable CLINICAL HISTORY: RIJ and OGT placement COMPARISON STUDY: Chest radiograph July 29, 2019 at 12:06 PM. FINDINGS: Tip of nasogastric tube is within the gastric fundus. Incidental note is made of an anterio r cervical spine fusion. The tip of the endotracheal tube is at the level of the aakash. The tube cou ld be withdrawn 2 cm. There is no pneumothorax. Tip of right internal jugular central line projects o berry the proximal right atrium. Left basilar opacity has increased. There may be minimal right basilar opacity. There is no evidence for pulmonary edema IMPRESSION: 1. Tip of endotracheal tube at the level of the aakash. The tube could be withdrawn 2 cm. This findin g will be called/faxed to the ordering provider at time of dictation. 2. No pneumothorax following placement of a right internal jugular central line. Catheter tip project s over the proximal right atrium. 3. Increasing left basilar opacity which favors consolidation although atelectasis could appear simil ar. ACT 112: Negative or not required by law. Electronically signed by: Papo Roberson M.D. 07/29/2019 6:18 PM
[2019-07-29 19:41] LABS: Partial Thromboplastin Ratio 2.7
[2019-07-29 19:44] LABS: Partial Thromboplastin Time 76.7 Seconds (21.0-31.0)
[2019-07-30] MEDS: NORMOSOL-R 1,000 ML IV SCH ×2 (00:04→12:34)
[2019-07-30] MEDS: DEXMEDETOMIDINE HCL 200 MCG in SODIUM CHLORIDE 0.9% 48 ML IV SCH ×7 (00:52→21:23)
[2019-07-30] MEDS: INSULIN ASPART 100 UNITS/ML 3 ML PEN SC SCH ×4 (01:06→17:02)
[2019-07-30 02:21] LABS: Basophils # (auto) 0.01 K/uL (0-0.2); Basophils % (auto) 0.1 %; Hematocrit (blood only) 30.5 % (42-52); Hemoglobin 10.3 g/dL (14.0-18.0); Immature Granulocytes # (auto) 0.07 K/uL (0.00-0.02); Immature Granulocytes % (auto) 0.4 %; Lymphocytes % (auto) 4.8 %; Mean Corpuscular Hemoglobin 30.9 pg (25-34); Mean Corpuscular Hgb Conc 33.8 g/dL (32-36); Mean Corpuscular Volume 91.6 fL (80-100); Mean Platelet Volume 10.2 fL (7.4-10.4); Monocytes # (auto) 0.98 K/uL (0.11-0.59); Monocytes % (auto) 5.2 %; Neutrophils # (auto) 16.81 K/uL (1.4-6.5); Neutrophils % (auto) 89.5 %; Platelet Count 249 K/uL (130-400); RDW Standard Deviation 43.7 fL (36.4-46.3); Red Blood Count 3.33 M/uL (4.7-6.1); White Blood Count 18.77 K/uL (4.8-10.8)
[2019-07-30 02:40] LABS: Partial Thromboplastin Ratio > 5.0
[2019-07-30 02:41] LABS: Partial Thromboplastin Time > 139.0 Seconds (21.0-31.0)
[2019-07-30 02:48] LABS: Albumin Level 2.1 gm/dl (3.4-5.0); BUN Creatinine Ratio 16.7 (10-20); Creatinine Clr Calc Pharmacy 46.3 ml/min; Est GFR (African American) 68.3; Est GFR (Non-African American) 58.9; Magnesium 2.2 mg/dl (1.8-2.4); Potassium 4.1 mmol/L (3.5-5.1)
[2019-07-30 02:51] LABS: Albumin Globulin Ratio 0.6 (0.9-2); Bilirubin,Total 0.6 mg/dl (0.2-1); Globulin 3.6 gm/dl (2.5-4.0); Total Protein 5.7 gm/dl (6.4-8.2)
[2019-07-30] MEDS ORDERED: ACETAMINOPHEN 10MG/ML PEDIATRIC DOSING IV PRN (03:00)
[2019-07-30] MEDS ORDERED: ACETAMINOPHEN 65 ML IV PRN (03:07)
[2019-07-30] MEDS ORDERED: ACETAMINOPHEN 1,000 MG/100 ML VIAL IV PRN ×2 (04:00→08:11)
[2019-07-30 04:24] LABS: Partial Thromboplastin Ratio 3.4
[2019-07-30 04:28] LABS: Partial Thromboplastin Time 96.2 Seconds (21.0-31.0)
[2019-07-30] MEDS: propofoL 1,000 MG/100 ML VIAL IV SCH (05:55)
[2019-07-30] MEDS: HYDROmorphone INJ 0.5 MG/0.5 ML SYR IV PRN (06:02)
[2019-07-30 06:23] LABS: Partial Thromboplastin Ratio 2.3
[2019-07-30 06:37] LABS: Partial Thromboplastin Time 63.9 Seconds (21.0-31.0)
[2019-07-30] MEDS ORDERED: CALCIUM GLUCONATE 10% 1,000 MG in SODIUM CHLORIDE 0.9% 50 ML IV ONE (07:15)
[2019-07-30] MEDS: HEPARIN SODIUM/DEXTROSE 25,000 UNITS/500 ML BAG IV SCH (07:27)
--- NOTE | 2019-07-30 08:05 | Hospitalist Progress Note ---
Date of Service July 30, 2019 Assessment & Plan (1) Severe sepsis: possible osteomyelitis Peripheral Arterial Disease (PAD), concern of limb ischemia -SIRS plus lactic acid elevation, admitting physician concerned for Right 1st and 2 nd Toe cellulitis -empirically started on daptomycin and cefepime (continue for now) -Duplex doppler arterial of lower extremity on 07/25/2019 1. Diffuse atherosclerotic vascular disease. 2. Mildly elevated peak systolic velocities within the superficial femoral artery suggestive of mild stenosis. 3. No arterial occlusion. 4. Monophasic three-vessel runoff. -vascular Dr. Octavio Bender suggested angiography of the right leg on Wednesday07/28/2019 -MRI of right foot 07/25/2019 concerning for possible osteomyelitis 1. Limited exam secondary to extensive motion artifact. 2. Extensive bone marrow edema of the first distal phalanx deep to the soft tissue ulcer is noted with with suggestion of mildly decreased T1 marrow signal suggestive of reactive osteitis versus early osteomyelitis. No definitive osseous erosion identified. 3. Bone marrow edema of the second distal phalanx with normal-appearing T1 marrow signal is likely reactive. 4. Nonspecific subcutaneous and intramuscular edema of the forefoot. 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 prn pain medications adjusted on 07/26/2019 -07/27/2019: orthopedics service not advising and surgical interventions, patient seen by wound care, on IV antibiotics for now -07/28/2019: patient had unsuccessful right leg angiography and then went to ICU level care while intubated and with heparin IV to prevent right leg ischemia -07/29/2019: Patient in ICU level of care. Patient remains intubated. Currently, critical care doctor obtained permission to place central line and arterial line from patient's daughter Rhonda because of worsening sepsis. Hospitalist have called hospital legal administrator to allow for patient's families to visit him in this critical care time. on antibiotics and IV heparin. started on pressors -07/30/2019: patient remains intubated and the right leg is cold and more difficult to assess pulse compared to left leg. patient on pressors. on IV heparin. unclear as to current source of sepsis. patient was well covered with IV Cefepime and IV Daptomycin from time of admission, but the patient's unsuccessful intraoperative right leg angio on 07/28/2019 left him with more potential right leg ischemia, the right foot is cold but not gangrenous, 07/29/2019 pulmonary imaging not showing acute lung infiltrates. daptomycin may not have a role in current state as there is no pulmonary coverage of this antibiotic and can increase creatinine kinase from right leg muscle breakdown and so will switch to IV Vancomycin. trend creatine kinase and repeat CXR on 07/30/2019 (2) Dementia: -now intubated and sedated (3) Anemia: Acute on chronic anemia -hemoglobin drop from baseline, occult GI bleed on rectal exam as per previous medical provider, FOBT positive -Gastroenterology service evaluated on 07/25/2019 but patient's family deferred any EGD or colonoscopy at this time to avoid excessive anesthesia in case patient needs right foot procedure -holding home dose aspirin for now -no acute bleeding since that time Hypertension Hyperlipidemia -blood pressure medications held because of sepsis Type 2 diabetes mellitus without prison current use of insulin -hemoglobin A1c of 6.21 Jun 2019 -hold home barney metformin -continue sliding scale insulin while inpatient Past tobacco use DVT prophylaxis: heparin drip IV Conditional code status Family Ms. Rhonda Madden, (daughter, primary contact) #[phone]. Ms. Jayashree Aguirre (, secondary contact) at [phone]. Admission and Anticipated Discharge Date Admission Date: July 25, 2019 Subjective patient remains intubated and the right leg is cold and more difficult to assess pulse compared to left leg. patient on pressors. on IV heparin. unclear as to current source of sepsis. patient was well covered with IV Cefepime and IV Dapt omycin from time of admission, but the patient's unsuccessful intraoperative right leg angio on 07/28/2019 left him with more potential right leg ischemia, the right foot is cold but not gangrenous, 07/29/2019 pulmonary imaging not showing acute lung infiltrates. daptomycin may not have a role in current state as there is no pulmonary coverage of this antibiotic and can increase creatinine kinase from right leg muscle breakdown and so will switch to IV Vancomycin. trend creatine kinase and repeat CXR on 07/30/2019 intubated and sedated Review of Systems Review of Systems: Unobtainable due to reduced consciousness Physical Exam Constitutional: + mechanically ventilated ENMT: external ear and nose normal, oropharynx normal Neck: normal visual inspection Respiratory: intubated Cardiovascular: Rate/Rhythm: regular rate Gastrointestinal (Abdomen): normal bowel sounds, soft, nontender, no hepatosplenomegaly Musculoskeletal: Head/Neck/Chest: normocephalic right foot cool to the touch Neurologic: sedated Psychiatric: Orientation: alert, oriented to person and oriented to place Genitourinary: ferro Results & Data Results & Data ([facility]) Vital Signs (Past 12 Hours) Vital Signs Pulse Resp BP Pulse Ox 07/30/19 07:50 71 20 96 07/30/19 07:16 60 16 98 07/30/19 05:34 68 137/58 L 98 07/30/19 05:05 73 123/66 99 07/30/19 04:50 62 16 100 07/30/19 04:34 69 100/56 L 98 07/30/19 04:04 66 104/46 L 97 07/30/19 03:44 66 84/41 L 98 07/30/19 03:04 66 99/49 L 97 07/30/19 02:35 70 112/42 L 96 07/30/19 02:04 75 131/56 L 99 07/30/19 01:34 82 137/63 99 07/30/19 01:20 71 22 100 07/30/19 01:04 64 120/52 L 98 07/30/19 00:35 65 106/49 L 98 07/30/19 00:05 64 102/43 L 98 07/30/19 00:00 63 07/29/19 23:35 79 133/76 100 07/29/19 23:04 65 138/60 100 07/29/19 22:35 63 124/59 L 100 07/29/19 22:04 65 109/47 L 99 07/29/19 21:50 80 23 99 07/29/19 21:35 81 132/76 100 07/29/19 21:04 65 108/51 L 98 07/29/19 20:34 65 136/59 L 99 07/29/19 20:04 65 132/68 99
[2019-07-30] MEDS ORDERED: VANCOMYCIN CONSULT ACTIVE PRN (08:07)
[2019-07-30 08:18] LABS: Albumin Level 1.9 gm/dl (3.4-5.0); BUN Creatinine Ratio 15.6 (10-20); Calcium 7.7 mg/dl (8.5-10.1); Creatinine Clr Calc Pharmacy 44.4 ml/min; Est GFR (African American) 64.9; Potassium 3.6 mmol/L (3.5-5.1)
[2019-07-30] MEDS ORDERED: VANCOMYCIN HCL 1,500 MG in SODIUM CHLORIDE 0.9% 500 ML IV SCH (08:30)
[2019-07-30 08:33] LABS: Albumin Globulin Ratio 0.5 (0.9-2); Bilirubin,Total 0.6 mg/dl (0.2-1); Globulin 3.6 gm/dl (2.5-4.0); Total Protein 5.5 gm/dl (6.4-8.2)
--- NOTE | 2019-07-30 09:54 | XRay Report ---
XR chest 1V portable HISTORY: 84 years-old Male f/u pneumonia follow-up study in a patient with pneumonia COMPARISON: Chest radiograph 07/29/2019 TECHNIQUE: Portable AP view of the chest FINDINGS: Cardiac silhouette is enlarged, unchanged. Calcified plaque of the thoracic aortic arch. Endotracheal tube overlies the midline, distal tip terminating at the level the aakash. Right IJ central venous c atheter distal tip terminates in the expected location of the superior right atrium. The patient is m ildly rotated towards the left. No pneumothorax. Trace right and small left pleural effusions with bi basilar opacities. Pulmonary vascular congestion. Lower cervical spine fusion hardware. Degenerative changes of the shoulders and spine. IMPRESSION: 1. Endotracheal tube terminates at the level of the aakash. Retraction of a few centimeters recommend ed. 2. Cardiomegaly with pulmonary vascular congestion. 3. Small left pleural effusion with bibasilar opacities suggestive of atelectasis versus pneumonitis. ACT 112: Negative or not required by law. The above report was generated using voice recognition software. It may contain grammatical, syntax o r spelling errors. Electronically signed by: Demetrio Mcneil M.D. 07/30/2019 9:53 AM
[2019-07-30] MEDS: ATENOLOL 25 MG TABLET PO SCH (09:57)
--- NOTE | 2019-07-30 09:57 | Critical Care Progress Note ---
Date of Service July 30, 2019 Assessment & Plan (1) Sepsis: Reason Critically Ill: 84-year-old male with dementia and PVD with ischemic ulcer of the right lower extremity with osteomyelitis/sepsis, presents postop for attempted but unsuccessful revascularization procedure, who was intubated for agitation and combative. Presents to ICU mechanically ventilated. Neuro - Dementiachronic, does not appear to be on home meds -Appears to be still relatively self-sufficient with live-in assistance with family -Currently on Precedex. Weaning sedation. Attempting to extubate today. Cardiac - Requiring intermittent phenylephrine to maintain his mean arterial pressure below 65. Dyslipidemiawe will continue statin once extubated and appropriate to take p.o. Ischemia of right lower extremity/PVDstatus post angioplasty of lower extremity unilateral, complicated by unsuccessful revascularization of distal tibial vessels with limited flow to pedal vessels via collaterals -Patient is without dopplerable pedal pulses to the right lower extremity, lower extremity cool to touch -Ortho consulted, initially did not recommend surgery but revascularization. Given unsuccessful revascularization, will follow-up surgical recommendations -Patient currently on heparin drip -We will continue to monitor frequent Doppler pulses -Unfortunately due to patient's cognitive status, unsure if he would be a good candidate for potential amputation. -Interventional cardiology following. Appreciate the recommendations. We will stop heparin drip today. Appreciate vascular intervention. Respiratory - Currently extubated to 01/20. Appears to be doing reasonably well today. Chest x-ray does show mild improvement in previous infiltrates. GI - N.p.o. will assess ability to swallow later today. RENAL/LYTES - Daptomycin discontinued due to elevation in CK. However, I think this is likely more related to his ischemic limb. He was started on vancomycin by the hospitalist. I discontinued this as his MRSA swab was negative. I have added Flagyl in addition to cefepime for anaerobic coverage. Cultures are pending. UA sent. Replacing electrolytes as needed. - Foleystrict I's and O's ENDO - DM type IIon metformin, currently holding -Continue sliding scale No history of thyroid disease, TSH within normal limits HEME - H&H stable, monitor routine CBCs. Heparin drip stopped. ID - Sepsissuspect osteo-myelitis source the right lower extremity, right second toe distal phalanx with potential osteomyelitis on MRI, necrotic ulcers to right first and second toes Cultures pending. Continue cefepime and Flagyl. Vancomycin daptomycin discontinued. LINES/IV ACCESS - PIV's, A-line DVT PROPHYLAXIS - SCDs, Lovenox I have personally spent 34 minutes of critical care time in the direct management of this patient. This is a life/limb threatening event. This includes time spent evaluating patient, direct bedside care, chart review, placing orders, interpretation of diagnostic studies, discussion with consultants, patient, and family members, as well as other required patient management activities. This time is exclusive of all separately billable procedures, and teaching time and separate from and in addition to any other critical care service time. Thank you for allowing us to participate in the care of this patient. Please refer to my attending physician's documentation for any further recommendations. (2) Dementia: (3) PAD (peripheral artery disease): (4) Diabetes mellitus: (5) Dyslipidemia: (6) Osteomyelitis: (7) Ischemia of lower extremity: Admission and Anticipated Discharge Date Admission Date: July 25, 2019 Subjective Unable to fully assess review of systems as the patient is currently intubated and sedated on Precedex. No significant overnight events. Requiring low-dose phenylephrine. Urine output has been adequate. Spiking fevers overnight. Highest temperature of 101.5 at 3 AM. Physical Exam Constitutional: + frail appearing and + mechanically ventilated Eyes: PERRL, conjunctivae normal, anicteric sclerae ENMT: external ear and nose normal, oropharynx normal Neck: trachea midline, no thyromegaly Respiratory: symmetric chest movement; no respiratory distress and no labored breathing Auscultation: lungs clear to auscultation bilaterally Cardiovascular: RRR, no murmur, no edema Heart Sounds: normal S1 and normal S2 Vessels: no JVD No palpable pulses in right lower extremity and extremity is cool to touch, left lower extremity is warm but pulses are only dopplerable Gastrointestinal (Abdomen): normal bowel sounds, soft, nontender, no hepatosplenomegaly Musculoskeletal: Exam limited secondary to sedation, right lower extremity cool to touch and cyanotic Skin: Ischemic ulcers to the right first and second toes with cellulitis on the second toe. Neurologic: He is able to squeeze my hands with his bilateral hands. He does pull at things at times. Restraints in place. Psychiatric: Unable to assess due to sedation Genitourinary: Indwelling Escoto catheter Results & Data Results & Data ([facility]) Vital Signs (Past 12 Hours) Vital Signs Pulse Resp BP Pulse Ox 07/30/19 07:50 71 20 96 07/30/19 07:16 60 16 98 07/30/19 05:34 68 137/58 L 98 07/30/19 05:05 73 123/66 99 07/30/19 04:50 62 16 100 07/30/19 04:34 69 100/56 L 98 07/30/19 04:04 66 104/46 L 97 07/30/19 03:44 66 84/41 L 98 07/30/19 03:04 66 99/49 L 97 07/30/19 02:35 70 112/42 L 96 07/30/19 02:04 75 131/56 L 99 07/30/19 01:34 82 137/63 99 07/30/19 01:20 71 22 100 07/30/19 01:04 64 120/52 L 98 07/30/19 00:35 65 106/49 L 98 07/30/19 00:05 64 102/43 L 98 07/30/19 00:00 63 07/29/19 23:35 79 133/76 100 07/29/19 23:04 65 138/60 100 07/29/19 22:35 63 124/59 L 100 07/29/19 22:04 65 109/47 L 99 Coding Level of Care Code Critical Care 1st 30-74 mins Diagnoses Sepsis A41.9 Dementia F03.90 PAD (peripheral artery disease) I73.9 Diabetes mellitus E11.9 Dyslipidemia E78.5 Osteomyelitis M86.9 Ischemia of lower extremity I99.8 Time Spent (min) 34
[2019-07-30] MEDS: CEFEPIME 2,000 MG in SYRINGE 7.5 ML IV SCH ×2 (09:59→21:23)
[2019-07-30] MEDS: FAMOTIDINE 20 MG in SYRINGE 3 ML IV SCH (09:59)
[2019-07-30] MEDS: metroNIDAZOLE 500 MG/100 ML BAG IV SCH ×2 (09:59→17:01)
--- NOTE | 2019-07-30 12:13 | Vascular Medicine ProgressNote ---
Date of Service July 30, 2019 Assessment & Plan (1) PAD (peripheral artery disease): --Post procedure day 2 after prolonged, complicated attempted endovascular intervention with incomplete revascularization to pedal vessels 2. RT foot cellulitis, ulceration possible osteo 3. LT foot ulceration. 4. Hypotension question of sepsis, question pulmonary source 5. Dementia 6. Anemia 7. Type 2 diabetes New pressor dependent hypotension yesterday without clear new infectious source Hemoglobin trended down on heparin. RLE perfusion appears unchanged Lactate improved CK increasing -- no options for additional revascularization -- agree with stopping heparin infusion -- broad spectrum antibiotics per tieing machine operator, primary team -- continue to trend hemoglobin -- if continues to fall consider eval for RP bleed post intervention -- continue to trend CK, and agree with repeat surgery eval Appreciate ICU and hospital medicine care. Will follow Subjective Yesterday remained intubated in the setting of hypotension and concern for sepsis requiring escalating pressors. Extubated today on BiPAP. Awake but not following commands. Appears in pain with any light touch Telemetry unremarkable. Review of Systems Review of Systems: Unobtainable due to reduced consciousness Physical Exam Physical Exam: General: Uncomfortable, does not follow commands, on BiPAP Lungs: Coarse breath sounds anteriorly Cardiac: Tachycardic, regular Abdomen: Soft Extremities: Femoral access sites soft without significant hematoma or ecchymosis, pulses intact. Skin: Right lower extremity warm, cooler than left, distal toes pale, diminished capillary refill, unchanged ulceration involving nailbed of great toe and medial aspect of second digit, no surrounding erythema or drainage. Nonpalpable DP/PT on left. Left lower extremity warm fifth digit dressing in place Results & Data Vital Signs (Past 12 Hours) Vital Signs Pulse Resp BP Pulse Ox 07/30/19 11:05 65 129/51 L 94 07/30/19 11:00 81 96 07/30/19 10:35 92 H 159/57 H 100 07/30/19 10:06 91 H 97 07/30/19 10:05 89 161/77 H 97 07/30/19 10:00 76 97 07/30/19 09:57 85 96 07/30/19 09:35 62 133/54 L 97 07/30/19 09:05 66 141/60 H 98 07/30/19 09:00 75 99 07/30/19 08:35 68 135/56 L 97 07/30/19 08:04 66 137/64 96 07/30/19 08:00 66 97 07/30/19 07:50 71 20 96 07/30/19 07:35 65 139/60 99 07/30/19 07:16 60 16 98 07/30/19 07:04 63 141/56 H 98 07/30/19 07:00 60 98 07/30/19 05:34 68 137/58 L 98 07/30/19 05:05 73 123/66 99 07/30/19 04:50 62 16 100 07/30/19 04:34 69 100/56 L 98 07/30/19 04:04 66 104/46 L 97 07/30/19 03:44 66 84/41 L 98 07/30/19 03:04 66 99/49 L 97 07/30/19 02:35 70 112/42 L 96 07/30/19 02:04 75 131/56 L 99 07/30/19 01:34 82 137/63 99 07/30/19 01:20 71 22 100 07/30/19 01:04 64 120/52 L 98 07/30/19 00:35 65 106/49 L 98 07/30/19 00:05 64 102/43 L 98 PG Care Time/CCT Total # of Minutes Spent Total Time Spent with Patient: Total time spent is greater than 50% in coordination of care (as documented) at patient's floor/unit and/or counseling patient: Coding Level of Care Code 13380 Subseq Hosp Care Lvl 3 Diagnoses PAD (peripheral artery disease) I73.9
[2019-07-30] MEDS: ENOXAPARIN INJ 30 MG/0.3 ML SYR SQ SCH (12:34)
[2019-07-30] MEDS: fentaNYL DRIP 1,250 MCG/250 ML BAG IV SCH (13:30)
[2019-07-30 13:50] LABS: iSTAT Arterial Blood Gas HCO3 21 meg/L (19-24); iSTAT Arterial Blood Gas pCO2 32 mmHg (35-46); iSTAT Arterial Blood Gas pH 7.41 (7.35-7.45); iSTAT Arterial Blood Gas pO2 73 mmHg (80-95); iSTAT Carbon Dioxide 22 mmol/L (24-31); iSTAT FiO2 30 %; iSTAT Site Art Line
[2019-07-30 14:22] LABS: Appearance Urine Cloudy (Clear); Bacteria Urine Automated Negative (Negative); Bilirubin Urine Negative (Negative); Blood Urine 3+ (Negative); Color Urine Yellow; Glucose Urine UA Negative (Negative); Ketones Urine Trace (Negative); Leukocyte Esterase Urine Negative (Negative); Nitrite Urine Negative (Negative); Protein Urine 1+ (Negative); Specific Gravity Urine 1.017 (1.000-1.030); Urobilinogen Urine Negative (Negative)
[2019-07-30 14:53] LABS: RBC Urine Automated 0-4 /hpf (0-4)
[2019-07-30] MEDS: PHENYLEPHRINE HCL 20 MG in DEXTROSE 5% 500 ML IV SCH (15:03)
[2019-07-31] MEDS: INSULIN ASPART 100 UNITS/ML 3 ML PEN SC SCH ×3 (00:40→11:50)
[2019-07-31] MEDS: NORMOSOL-R 1,000 ML IV SCH ×2 (00:43→11:36)
[2019-07-31] MEDS: DEXMEDETOMIDINE HCL 400 MCG in 0.9 % SODIUM CHLORIDE 96 ML IV SCH ×3 (00:43→10:48)
[2019-07-31] MEDS: metroNIDAZOLE 500 MG/100 ML BAG IV SCH ×2 (02:00→10:08)
[2019-07-31 04:39] LABS: Basophils # (auto) 0.01 K/uL (0-0.2); Basophils % (auto) 0.1 %; Eosinophils # (auto) 0.03 K/uL (0-0.5); Eosinophils % (auto) 0.2 %; Hematocrit (blood only) 25.9 % (42-52); Hemoglobin 9.1 g/dL (14.0-18.0); Immature Granulocytes # (auto) 0.05 K/uL (0.00-0.02); Immature Granulocytes % (auto) 0.4 %; Lymphocytes # (auto) 0.56 K/uL (1.2-3.4); Lymphocytes % (auto) 4.1 %; Mean Corpuscular Hemoglobin 31.9 pg (25-34); Mean Corpuscular Hgb Conc 35.1 g/dL (32-36); Mean Corpuscular Volume 90.9 fL (80-100); Monocytes # (auto) 0.84 K/uL (0.11-0.59); Monocytes % (auto) 6.2 %; Neutrophils # (auto) 12.13 K/uL (1.4-6.5); Platelet Count 196 K/uL (130-400); RDW Coefficient of Variation 13.2 % (11.5-14.5); RDW Standard Deviation 43.9 fL (36.4-46.3); Red Blood Count 2.85 M/uL (4.7-6.1); White Blood Count 13.62 K/uL (4.8-10.8)
[2019-07-31 05:32] LABS: BUN Creatinine Ratio 20.4 (10-20); Calcium 7.1 mg/dl (8.5-10.1); Creatinine Clr Calc Pharmacy 59.2 ml/min; Est GFR (African American) 91.9; Est GFR (Non-African American) 79.3; Magnesium 2.4 mg/dl (1.8-2.4); Phosphorus 2.6 mg/dl (2.5-4.9); Potassium 3.7 mmol/L (3.5-5.1)
[2019-07-31] MEDS: DEXMEDETOMIDINE HCL 200 MCG in SODIUM CHLORIDE 0.9% 48 ML IV SCH (08:17)
[2019-07-31] MEDS: CEFEPIME 2,000 MG in SYRINGE 7.5 ML IV SCH (08:30)
[2019-07-31] MEDS: ENOXAPARIN INJ 30 MG/0.3 ML SYR SQ SCH (08:31)
[2019-07-31] MEDS: FAMOTIDINE 20 MG in SYRINGE 3 ML IV SCH (08:31)
--- NOTE | 2019-07-31 10:50 | Critical Care Progress Note ---
Date of Service July 31, 2019 Assessment & Plan (1) Sepsis: Reason Critically Ill: 84-year-old male with dementia and PVD with ischemic ulcer of the right lower extremity with osteomyelitis/sepsis, presents postop for attempted but unsuccessful revascularization procedure, who was intubated for agitation and combative. Neuro - Dementiachronic, does not appear to be on home meds -Appears to be still relatively self-sufficient with live-in assistance with family -Titrate off Precedex. Cardiac - Off vasopressors Dyslipidemiawe will continue statin once extubated and appropriate to take p.o. Ischemia of right lower extremity/PVDstatus post angioplasty of lower extremity unilateral, complicated by unsuccessful revascularization of distal tibial vessels with limited flow to pedal vessels via collaterals -Patient is without dopplerable pedal pulses to the right lower extremity, lower extremity cool to touch -Ortho consulted, initially did not recommend surgery but revascularization. Given unsuccessful revascularization. We will officially consult Ortho/vascular -We will continue to monitor frequent Doppler pulses -Unfortunately due to patient's cognitive status, unsure if he would be a good candidate for potential amputation. -Interventional cardiology following Respiratory - Extubated 07/30/2019 Tolerating with no distress on room air. BiPAP nightly and PRN shortness of breath GI - N.p.o. RENAL/LYTES - Daptomycin discontinued due to elevation in CK. Part elevation of CPK is likely from extremity right lower extremity. Cefepime and Flagyl for osteomyelitis of the right foot - Foleystrict I's and O's ENDO - DM type II Continue sliding scale No history of thyroid disease, TSH within normal limits HEME - Monitor H&H Transfuse for hemoglobin less than 7 ID - Sepsissuspect osteo-myelitis source the right lower extremity, right second toe distal phalanx with potential osteomyelitis on MRI, necrotic ulcers to right first and second toes Cultures negative to date continue cefepime and Flagyl. Vancomycin and daptomycin discontinued. LINES/IV ACCESS : Right IJ and radial catheter, positive Escoto DVT PROPHYLAXIS - SCDs, Lovenox Plan: In/out: +600 ml, urine output 2050 ml We will do swallow eval today Repeat H&H in the afternoon if the hemoglobin is trending down then we will do a CT abdomen pelvis without contrast to rule out retroperitoneal bleed. Continue antibiotics for possible osteomyelitis of the lower extremity Hold Lovenox for today. CPK trending down DC Escoto and arterial line later today Patient is hemodynamically stable. If the repeat H&H is stable patient will be downgraded to the medical floor. Overall prognosis of the patient is guarded given severe peripheral vascular disease and multiple other comorbidities. Recommend palliative care consult I have personally spent 38 minutes of critical care time in the direct management of this patient. This is a life/limb threatening event. This includes time spent evaluating patient, direct bedside care, chart review, placing orders, interpretation of diagnostic studies, discussion with consultants, patient, and family members, as well as other required patient management activities. This time is exclusive of all separately billable procedures, and teaching time and separate from and in addition to any other critical care service time. Please note the above document was generated using voice recognition software. It may contain grammatical, syntax or spelling errors. (2) Dementia: (3) PAD (peripheral artery disease): (4) Diabetes mellitus: (5) Dyslipidemia: (6) Osteomyelitis: (7) Ischemia of lower extremity: Admission and Anticipated Discharge Date Admission Date: July 25, 2019 Subjective Patient seen and examined at bedside. No acute distress, no adverse events overnight. Patient was on Precedex at the time of examination. Saturating well on room air. Not in any respiratory distress. Answers simple questions yes or no. Most of the times he just screams now. Review of Systems Review of Systems: Unobtainable due to cognitive status Physical Exam Physical Exam: Constitutional: No acute distress HEENT: EOMI, PERRLA Respiratory system: Decreased air entry bilaterally, positive crackles bilateral lower lobes CVS: S1-S2 positive, no murmurs or gallops Abdomen: Soft, nontender, nondistended, positive bowel sounds x4 Extremities: Decreased pulses bilaterally, more decreased on the right side, right lower extremity colder than the left, no edema Neuro: Awake alert oriented to only self, with bouts of agitation Psych: Unable to assess G/U: Positive Escoto Skin: no rashes, warm and dry Lymphatic: no cervical or axillary lymphadenopathy Results & Data Results & Data ([facility]) Vital Signs (Past 12 Hours) Vital Signs Pulse Resp BP Pulse Ox 07/31/19 09:35 69 25 H 158/66 H 100 07/31/19 09:05 72 23 142/69 H 99 07/31/19 09:00 68 28 H 98 07/31/19 08:36 71 25 H 133/67 100 07/31/19 08:06 61 25 H 99 07/31/19 08:05 66 22 153/65 H 100 07/31/19 08:00 67 27 H 97 07/31/19 07:39 96 07/31/19 07:35 71 29 H 150/60 H 100 07/31/19 07:05 57 L 23 135/53 L 96 07/31/19 07:00 57 L 22 97 07/31/19 06:35 54 L 21 148/54 H 97 07/31/19 06:06 54 L 22 97 07/31/19 06:05 57 L 23 138/56 L 97 07/31/19 05:35 55 L 22 134/56 L 97 07/31/19 05:05 52 L 21 135/58 L 96 07/31/19 04:35 56 L 22 141/61 H 96 07/31/19 04:16 54 L 34 H 96 07/31/19 04:05 55 L 21 126/53 L 97 07/31/19 03:35 51 L 19 141/65 H 98 07/31/19 03:06 55 L 19 153/79 H 98 07/31/19 02:35 53 L 19 143/65 H 97 07/31/19 02:06 68 23 156/91 H 96 07/31/19 01:35 51 L 19 141/56 H 99 07/31/19 01:34 51 L 33 H 100 07/31/19 01:05 52 L 20 137/57 L 99 07/31/19 00:36 71 25 H 160/86 H 100 07/31/19 00:05 50 L 20 133/53 L 99 07/31/19 00:00 55 L 07/30/19 23:35 53 L 21 140/56 L 99 07/30/19 23:05 58 L 22 139/59 L 99 07/30/19 23:00 60 22 98 07/31/19 04:32 07/31/19 04:32 Coding Level of Care Code Critical Care 1st 30-74 mins Diagnoses Sepsis A41.9 Dementia F03.90 PAD (peripheral artery disease) I73.9 Diabetes mellitus E11.9 Dyslipidemia E78.5 Osteomyelitis M86.9 Ischemia of lower extremity I99.8 Time Spent (min) 38
--- NOTE | 2019-07-31 10:59 | Hospitalist Progress Note ---
Date of Service July 31, 2019 Assessment & Plan (1) Severe sepsis: possible osteomyelitis Peripheral Arterial Disease (PAD), right leg ischemia -SIRS plus lactic acid elevation, admitting physician concerned for Right 1st and 2 nd Toe cellulitis -empirically started on daptomycin and cefepime (continue for now) -Duplex doppler arterial of lower extremity on 07/25/2019 1. Diffuse atherosclerotic vascular disease. 2. Mildly elevated peak systolic velocities within the superficial femoral ar khadar suggestive of mild stenosis. 3. No arterial occlusion. 4. Monophasic three-vessel runoff. -vascular Dr. Octavio Bender suggested angiography of the right leg on Wednesday07/28/2019 -MRI of right foot 07/25/2019 concerning for possible osteomyelitis 1. Limited exam secondary to extensive motion artifact. 2. Extensive bone marrow edema of the first distal phalanx deep to the soft tissue ulcer is noted with with suggestion of mildly decreased T1 marrow signal suggestive of reactive osteitis versus early osteomyelitis. No definitive osseous erosion identified. 3. Bone marrow edema of the second distal phalanx with normal-appearing T1 marrow signal is likely reactive. 4. Nonspecific subcutaneous and intramuscular edema of the forefoot. -07/26/2019 updates: had long conversation with patient's Jayashree [phone] and daughter Rhonda Madden [phone] in regards to obtaining orthopedic consult and possible needs of nursing home IV antibiotics of osteomyelitis present of the right big toe - Rhonda gave permission for PICC line or midline if needed because of patient's dementia. prn pain medications adjusted on 07/26/2019 -07/27/2019: orthopedics service not advising and surgical interventions, patient seen by wound care, on IV antibiotics for now -07/28/2019: patient had unsuccessful right leg angiography and then went to ICU level care while intubated and with heparin IV to prevent right leg ischemia -07/29/2019: Patient in ICU level of care. Patient remains intubated. Currently, critical care doctor obtained permission to place central line and arterial line from patient's daughter Rhonda because of worsening sepsis. Hospitalist have called hospital internet systems administrator to allow for patient's families to visit him in this critical care time. on antibiotics and IV heparin. started on pressors -07/30/2019: patient remains intubated and the right leg is cold and more difficult to assess pulse compared to left leg. patient on pressors. on IV heparin. unclear as to current source of sepsis. patient was well covered with IV Cefepime 2000 mg q12 hours and IV Daptomycin from time of admission, but the patient's unsuccessful intraoperative right leg angio on 07/28/2019 left him with more potential right leg ischemia, the right foot is cold but not gangrenous, 07/29/2019 pulmonary imaging not showing acute lung infiltrates. daptomycin may not have a role in current state as there is no pulmonary coverage of this antibiotic and can increase creatinine kinase from right leg muscle breakdown and the thoughts was to switch to IV Vancomycin but ICU physician preferred IV Cefepime 200 mg q12 hours with 500 mg q8 hour IV metronidazole. Later in the day patient was extubated and then off IV heparin drip and switched to subcutaneous heparin and then pressors were de-escalated -07/31/2019: patient currently remains stable on room air and hemodynamically stable with mild decrease in Hgb to 9.1 Patient is awake and confused and moaning or repetitively speaking certain words like wanting to go or help me. In ICU rounds, the concern that patient out of critical care state but that terminal operations supervisor prognosis of the right lower leg ischemia may be poor. Hospitalist discussed with patient's family Rhonda Madden [phone] that at current evaluation there may be very little benefit or perhaps dangerous to try to do further re-vascularization of the leg and no current in house vascular surgery plans to do further vascular procedure. have expressed to her that the right leg could have risk of developing gangrene and then may need amputation versus palliative option. patient's daughter wishes for transfer to tertiary care center [facility] for further evaluation of possible vascular or surgical procedures. Hospitalist discussed with [facility] doctors: ICU physician Dr. Wale Hernandes, supply assistant triage Dr. Yoandy Vickers, hospitalist Dr Ivone Vickers about patient's [facility] Care to date and requesting transfer - Dr. Ivone Vickers is accepting medical doctor and patient to be on telemetry level of care at [place]. (2) Dementia: -now intubated and sedated (3) Anemia: Acute on chronic anemia -hemoglobin drop from baseline, occult GI bleed on rectal exam as per previous medical provider, FOBT positive -Gastroenterology service evaluated on 07/25/2019 but patient's family deferred any EGD or colonoscopy at this time to avoid excessive anesthesia in case patient needs right foot procedure -holding home dose aspirin for now -no acute bleeding since that time Hypertension Hyperlipidemia -blood pressure medications held because of sepsis Type 2 diabetes mellitus without nursing home current use of insulin -hemoglobin A1c of 6.21 Jun 2019 -hold home barney metformin -continue sliding scale insulin while inpatient Past tobacco use Conditional code status: family allows for intubation/mechanical ventilation but no chest compressions and no defibrillation Family Ms. Rhonda Madden, (daughter, primary contact) #[phone]. Ms. Jayashree Aguirre (, secondary contact) at [phone]. Admission and Anticipated Discharge Date Admission Date: July 25, 2019 Subjective patient currently remains stable on room air and hemodynamically stable with m ild decrease in Hgb to 9.1 Patient is awake and confused and moaning or repetitively speaking certain words like wanting to go or help me. In ICU rounds, the concern that patient out of critical care state but that nursing home prognosis of the right lower leg ischemia may be poor. Hospitalist discussed with patient's family Rhonda Madden [phone] that at current evaluation there may be very little benefit or perhaps dangerous to try to do further re- vascularization of the leg and no current in house vascular surgery plans to do further vascular procedure. have expressed to her that the right leg could have risk of developing gangrene and then may need amputation versus palliative option. patient's daughter wishes for transfer to tertiary care center [facility] for further evaluation of possible vascular or surgical procedures. Hospitalist discussed with [facility] doctors: ICU physician Dr. Wale Hernandes, supply assistant triage Dr. Yoandy Vickers, hospitalist Dr Lian Vickers about patient's [facility] Care to date and requesting transfer - Dr. Ivone Vickers is accepting medical doctor and patient to be on telemetry level of care at [place]. Review of Systems Review of Systems: Unobtainable due to cognitive status Physical Exam Constitutional: + altered mental status Eyes: PERRL, conjunctivae normal, anicteric sclerae EOM intact bilaterally ENMT: external ear and nose normal, oropharynx normal Neck: normal visual inspection Respiratory: normal respiratory effort, lungs clear to auscultation Cardiovascular: Rate/Rhythm: regular rate Gastrointestinal (Abdomen): normal bowel sounds, soft, nontender, no hepatosplenomegaly Musculoskeletal: Head/Neck/Chest: normocephalic (right lower leg warm but difficult to palpate pulses) Neurologic: PERRL, EOMI, accommodation nl, no face palsy, no dysarthria CN's II-XI intact bilaterally Psychiatric: Orientation: alert, oriented to person and oriented to place Results & Data Results & Data ([facility]) Vital Signs (Past 12 Hours) Vital Signs Pulse Resp BP Pulse Ox 07/31/19 09:35 69 25 H 158/66 H 100 07/31/19 09:05 72 23 142/69 H 99 07/31/19 09:00 68 28 H 98 07/31/19 08:36 71 25 H 133/67 100 07/31/19 08:06 61 25 H 99 07/31/19 08:05 66 22 153/65 H 100 07/31/19 08:00 67 27 H 97 07/31/19 07:39 96 07/31/19 07:35 71 29 H 150/60 H 100 07/31/19 07:05 57 L 23 135/53 L 96 07/31/19 07:00 57 L 22 97 07/31/19 06:35 54 L 21 148/54 H 97 07/31/19 06:06 54 L 22 97 07/31/19 06:05 57 L 23 138/56 L 97 07/31/19 05:35 55 L 22 134/56 L 97 07/31/19 05:05 52 L 21 135/58 L 96 07/31/19 04:35 56 L 22 141/61 H 96 07/31/19 04:16 54 L 34 H 96 07/31/19 04:05 55 L 21 126/53 L 97 07/31/19 03:35 51 L 19 141/65 H 98 07/31/19 03:06 55 L 19 153/79 H 98 07/31/19 02:35 53 L 19 143/65 H 97 07/31/19 02:06 68 23 156/91 H 96 07/31/19 01:35 51 L 19 141/56 H 99 07/31/19 01:34 51 L 33 H 100 07/31/19 01:05 52 L 20 137/57 L 99 07/31/19 00:36 71 25 H 160/86 H 100 07/31/19 00:05 50 L 20 133/53 L 99 07/31/19 00:00 55 L 07/30/19 23:35 53 L 21 140/56 L 99 07/30/19 23:05 58 L 22 139/59 L 99 07/30/19 23:00 60 22 98
--- NOTE | 2019-07-31 11:15 | Discharge Summary ---
Date of Service July 31, 2019 Admission HPI Per Admitting Provider History obtained from patient, family, and records. History somewhat limited from patient secondary to dementia. Medical history significant for PAD, hypertension, hyperlipidemia, DM 2 on oral medications, chronic anemia (baseline hemoglobin 13), past tobacco abuse as per records, dementia. Last confinement April 2012 for weakness and hydration. 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 Outpatient bilateral lower extremity arterial duplex showed moderate to severe calcific sclerosis bilateral lower extremity arterial systems. Outpatient bilateral lower extremity angiogram procedure for PAD<critical limb ischemia and nonhealing lower extremity ulceration last April 2019 by [facility] vascular specialist aborted due to patient confusion/agitation during procedure. On last follow-up visit with vascular specialist 2 weeks ago, patient's left lower extremity ulceration on the fifth toe unchanged as per note. No active infection noted. Patient complaining of right foot pain the family. Patient and family to discuss scheduling repeat attempt at LE angiography with anesthesia as per note. Patient seen at PCPs office last week for neck pain for 1 month related to motion. Neck pain attributed to muscle spasm after examination as per note. No x-rays done. Topical diclofenac ineffective for discomfort. Prednisone course prescribed by PCP, first dose of which was taken yesterday. As per patient's daughter, patient complaining of worsening R foot pain the last few days. Patient's daughter noted increased darkening of the first digit of the right foot and new involvement of the second digit. At the ER, patient received daptomycin and ceftriaxone for sepsis. Patient denies right foot pain complaints currently. According to patient it was his left foot that was bothering him more the last few days. No chest pain, no S OB. Patient denies neck pain complaints currently. No arm/leg weakness. Denies abdominal pain. Denies black/ bloody stools. MEDICAL HISTORY: As above. SURGICAL HISTORY: Cataract surgery. Hernia repair FAMILY HISTORY: There is a family history of heart disease. PERSONAL/ SOCIAL HISTORY: Past tobacco abuse. 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 Lives with his . Principal Diagnosis sepsis possible osteomyelitis Peripheral Arterial Disease (PAD), concern of right lower leg ischemia Acute on chronic anemia Type 2 diabetes mellitus without correction current use of insulin Dementia Discharge Exam Constitutional + altered mental status Eyes PERRL, conjunctivae normal, anicteric sclerae EOM intact bilaterally ENMT external ear and nose normal, oropharynx normal Neck normal visual inspection Respiratory normal respiratory effort, lungs clear to auscultation Cardiovascular Rate/Rhythm: regular rate Gastrointestinal (Abdomen) normal bowel sounds, soft, nontender, no hepatosplenomegaly Musculoskeletal Head/Neck/Chest: normocephalic (right lower leg warm but difficult to palpate pulses) Neurologic PERRL, EOMI, accommodation nl, no face palsy, no dysarthria CN's II-XI intact bilaterally Psychiatric Orientation: alert, oriented to person and oriented to place Discharge Data Allergies Allergy/AdvReac Type Severity Reaction Status Date / Time No Known Allergies Allergy Unknown Verified 07/25/19 00:39 Consultations 07/25/19 04:35 ED Decision to Admit Stat 07/25/19 05:03 Consult Gastroenterology Routine 07/25/19 06:43 Consult Physician Routine 07/26/19 07:38 Consult Orthopedic Surgery Routine 07/26/19 08:31 Consult Case Management - Discharge Planning Routine 07/27/19 07:17 Consult Wound Care Provider Routine 07/28/19 18:39 Consult Passenger Train Braker Stat 07/31/19 09:50 Consult Vascular Surgery Routine 07/31/19 11:10 Burn CD for patient Stat Procedures Performed Operation Date: 07/28/19 09:00 Actual Procedures p Angio Extremity Bilateral - Asad Bender MD s Fem Pop Balloon Atherectomy - Asad Bender MD s Placement Art Occlusive Device - sAad Bender MD s SC Select Cath ALEP 3rd Order - Asad Bender MD s Ultrasound Vascular Access - Asad Bender MD s Tibioperoneal Balloon Atherect - Asad Bender MD Operation Date: 07/28/19 15:00 Actual Procedures p Angio Extremity Unilateral - Asad Bender MD s Ultrasound Vascular Access(Right) - Asad Bender MD s Tibial Peroneal Balloon - Asad Bender MD s SC Select Cath ALEP 3rd Order - Asad Bender MD s Placement Art Occlusive Device - Asad Bender MD Ordered Studies 07/25/19 00:09 US arterial duplex LE RT Urgent US venous doppler LE BI Urgent 07/25/19 04:11 US arterial duplex LE LT Urgent 07/25/19 08:23 MR foot RT w/o con Routine 07/28/19 06:39 CL Cath Imgs for PACS use only Routine 07/28/19 15:20 US guide intraoperative Stat Hospital Course (1) Severe sepsis: possible osteomyelitis Peripheral Arterial Disease (PAD), right leg ischemia -SIRS plus lactic acid elevation, admitting physician concerned for Right 1st and 2 nd Toe cellulitis -empirically started on daptomycin and cefepime (continue for now) -Duplex doppler arterial of lower extremity on 07/25/2019 1. Diffuse atherosclerotic vascular disease. 2. Mildly elevated peak systolic velocities within the superficial femoral artery suggestive of mild stenosis. 3. No arterial occlusion. 4. Monophasic three-vessel runoff. -vascular Dr. Octavio Bender suggested angiography of the right leg on Wednesday07/28/2019 -MRI of right foot 07/25/2019 concerning for possible osteomyelitis 1. Limited exam secondary to extensive motion artifact. 2. Extensive bone marrow edema of the first distal phalanx deep to the soft tissue ulcer is noted with with suggestion of mildly decreased T1 marrow signal suggestive of reactive osteitis versus early osteomyelitis. No definitive osseous erosion identified. 3. Bone marrow edema of the second distal phalanx with normal-appearing T1 marrow signal is likely reactive. 4. Nonspecific subcutaneous and intramuscular edema of the forefoot. -07/26/2019 updates: had long conversation with patient's Jayashree [phone] and daughter Rhonda Madden [phone] in regards to obtaining orthopedic consult and possible needs of correction IV antibiotics of osteomyelitis present of the right big toe - Rhonda gave permission for PICC line or midline if needed because of patient's dementia. prn pain medications adjusted on 07/26/2019 -07/27/2019: orthopedics service not advising and surgical interventions, patient seen by wound care, on IV antibiotics for now -07/28/2019: patient had unsuccessful right leg angiography and then went to ICU level care while intubated and with heparin IV to prevent right leg ischemia -07/29/2019: Patient in ICU level of care. Patient remains intubated. Currently, critical care doctor obtained permission to place central line and arterial line from patient's daughter Rhonda because of worsening sepsis. Hospitalist have called hospital import/export administrator to allow for patient's families to visit him in this critical care time. on antibiotics and IV heparin. started on pressors -07/30/2019: patient remains intubated and the right leg is cold and more difficult to assess pulse compared to left leg. patient on pressors. on IV heparin. unclear as to current source of sepsis. patient was well covered with IV Cefepime 2000 mg q12 hours and IV Daptomycin from time of admission, but the patient's unsuccessful intraoperative right leg angio on 07/28/2019 left him with more potential right leg ischemia, the right foot is cold but not gangrenous, 07/29/2019 pulmonary imaging not showing acute lung infiltrates. daptomycin may not have a role in current state as there is no pulmonary coverage of this antibiotic and can increase creatinine kinase from right leg muscle breakdown and the thoughts was to switch to IV Vancomycin but ICU physician preferred IV Cefepime 200 mg q12 hours with 500 mg q8 hour IV metronidazole. Later in the day patient was extubated and then off IV heparin drip and switched to subcutaneous heparin and then pressors were de-escalated -07/31/2019: patient currently remains stable on room air and hemodynamically stable with mild decrease in Hgb to 9.1 Patient is awake and confused and moaning or repetitively speaking certain words like wanting to go or help me. 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 Hospitalist discussed with patient's family Rhonda Madden [phone] that at current evaluation there may be very little benefit or perhaps dangerous to try to do further re-vascularization of the leg and no current in house vascular surgery plans to do further vascular procedure. have expressed to her that the right leg could have risk of developing gangrene and then may need amputation versus palliative option. patient's daughter wishes for transfer to tertiary care center [facility] for further evaluation of possible vascular or surgical procedures. Hospitalist discussed with [facility] doctors: ICU physician Dr. Wale Hernandes, promotions assistant triage Dr. Yoandy Vickers, hospitalist Dr Ivone Vickers about patient's [facility] Care to date and requesting transfer - Dr. Ivone Vickers is accepting medical doctor and patient to be on telemetry level of care at [facility]. 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 Rhonda Madden, (daughter, primary contact) #[phone]. Ms. Jayashree Aguirre (, secondary contact) at [phone]. Total Time Total Time Spent Total Time Spent (In Minutes): 40 minutes Total Time Includes: Examination of the Patient, Discharge Planning, Medication Reconciliation and Communication With Other Providers Discharge Plan Discharge Items Patient Disposition: Transfer Acute [facility] Reason For Visit: SEPSIS Discharge Diagnosis: sepsis possible osteomyelitis Peripheral Arterial Disease (PAD), concern of right lower leg ischemia Acute on chronic anemia Type 2 diabetes mellitus without correction current use of insulin Dementia Condition on Discharge: Fair Activity: Per Instructions section Non-emergency contact: Primary Care Provider and Specialist Call non-emergency contact if: you have any medication questions Follow-up/Referrals: Kareem Ventura MD [Primary Care Provider] - Addtl Attending Provider Instructions: possible osteomyelitis Peripheral Arterial Disease (PAD), concern of limb ischemia -SIRS plus lactic acid elevation, admitting physician concerned for Right 1st and 2 nd Toe cellulitis -empirically started on daptomycin and cefepime (continue for now) -Duplex doppler arterial of lower extremity on 07/25/2019 1. Diffuse atherosclerotic vascular disease. 2. Mildly elevated peak systolic velocities within the superficial femoral artery suggestive of mild stenosis. 3. No arterial occlusion. 4. Monophasic three-vessel runoff. -vascular Dr. Octavio Bender suggested angiography of the right leg on Wednesday07/28/2019 -MRI of right foot 07/25/2019 concerning for possible osteomyelitis 1. Limited exam secondary to extensive motion artifact. 2. Extensive bone marrow edema of the first distal phalanx deep to the soft tissue ulcer is noted with with suggestion of mildly decreased T1 marrow signal suggestive of reactive osteitis versus early osteomyelitis. No definitive osseous erosion identified. 3. Bone marrow edema of the second distal phalanx with normal-appearing T1 marrow signal is likely reactive. 4. Nonspecific subcutaneous and intramuscular edema of the forefoot. -07/26/2019 updates: had long conversation with patient's Jayashree [phone] and daughter Rhonda Madden [phone] in regards to obtaining orthopedic consult and possible needs of correction IV antibiotics of osteomyelitis present of the right big toe - Rhonda gave permission for PICC line or midline if needed because of patient's dementia. prn pain medications adjusted on 07/26/2019 -07/27/2019: orthopedics service not advising and surgical interventions, patient seen by wound care, on IV antibiotics for now -07/28/2019: patient had unsuccessful right leg angiography and then went to ICU level care while intubated and with heparin IV to prevent right leg ischemia -07/29/2019: Patient in ICU level of care. Patient remains intubated. Currently, critical care doctor obtained permission to place central line and arterial line from patient's daughter Rhonda because of worsening sepsis. Hospitalist have called hospital import/export administrator to allow for patient's families to visit him in this critical care time. on antibiotics and IV heparin. started on pressors -07/30/2019: patient remains intubated and the right leg is cold and more difficult to assess pulse compared to left leg. patient on pressors. on IV heparin. unclear as to current source of sepsis. patient was well covered with IV Cefepime 2000 mg q12 hours and IV Daptomycin from time of admission, but the patient's unsuccessful intraoperative right leg angio on 07/28/2019 left him with more potential right leg ischemia, the right foot is cold but not gangrenous, 07/29/2019 pulmonary imaging not showing acute lung infiltrates. daptomycin may not have a role in current state as there is no pulmonary coverage of this antibiotic and can increase creatinine kinase from right leg muscle breakdown and the thoughts was to switch to IV Vancomycin but ICU physician preferred IV Cefepime 200 mg q12 hours with 500 mg q8 hour IV metronidazole. Later in the day patient was extubated and then off IV heparin drip and switched to subcutaneous heparin and then pressors were de-escalated -07/31/2019: patient currently remains stable on room air and hemodynamically stable with mild decrease in Hgb to 9.1 Patient is awake and confused and moaning or repetitively speaking certain words like wanting to go or help me. In ICU rounds, the concern that patient out of critical care state but that correction prognosis of the right lower leg ischemia may be poor. Hospitalist discussed with patient's family Rhonda Madden [phone] that at current evaluation there may be very little benefit or perhaps dangerous to try to do further re-vascularization of the leg and no current in house vascular surgery plans to do further vascular procedure. have expressed to her that the right leg could have risk of developing gangrene and then may need amputation versus palliative option. patient's daughter wishes for transfer to tertiary care center [facility] for further evaluation of possible vascular or surgical procedures. Hospitalist discussed with [facility] doctors: ICU physician Dr. Wale Hernandes, promotions assistant triage Dr. Yoandy Vickers, hospitalist Dr Ivone Vickers about patient's [facility] Care to date and requesting transfer - Dr. Ivone Vickers is accepting medical doctor and patient to be on telemetry level of care at [facility]. Conditional code status: family allows for intubation/mechanical ventilation but no chest compressions and no defibrillation Family Ms. Rhonda Madden, (daughter, primary contact) #[phone]. Ms. Jayashree Aguirre (, secondary contact) at [phone]. Pending Studies at Discharge: No Stand-Alone Forms: My [facility] Skilled Items Patient informed of condition?: Yes DNR: No Discharge Level of Care: Other Communicable Disease: No Discharge Prognosis: Stable Lines: Peripheral IV Urinary Catheter: Yes Medications and DC Order Prescriptions: Continued amlodipine 5 mg tablet 5 mg PO DAILY RF: 0 atenolol 25 mg tablet 25 mg PO DAILY RF: 0 Discontinued lorazepam 1 mg tablet 0.5 mg PO DAILY RF: 0 metformin 500 mg tablet 1,000 mg PO DAILY RF: 0 simvastatin 20 mg tablet 20 mg PO DAILY RF: 0 aspirin [Adult Aspirin Regimen] 81 mg tablet,delayed release (DR/EC) 81 mg PO DAILY RF: 0 acetaminophen [Tylenol Extra Strength] 500 mg tablet 500 mg PO Q6H PRN (Reason: Pain) RF: 0 B12 Active 1,000 mcg tablet,chewable 500 mcg PO DAILY RF: 0 prednisone 10 mg Tablet See Taper mg PO DAILY RF: 0 Discharge Orders: Discharge Order (Routine); Ordered 07/31/19 Ordered By: Mor Fernandez Admission Data Admit Date/Time: 07/25/19 04:00 Attending Provider: Mor Fernandez Admit Provider: Jose F Holden Primary Care Provider: Kareem Ventura Other Providers: [facility] ; Jose F Holden ; Jeanie Suero ; Thi Frances ; Mehnaz Vuong ; Carole Laguna ; Isidoro Umana ; Abdulaziz Quiroz ; Kevin Carroll ; Judith Neal ; Lonnie Valadez ; Chin Shelley ; Jacqueline Ewing ; Ct Judd ; Shauna Morrell ; Anjelica Dorantes ; Aureliano Persaud ; Asad Bender ; Luis Alexis ; Ramiro Fay ; José Antonio Flores ; José Pond
[2019-07-31 12:09] LABS: Hematocrit (blood only) 27.5 % (42-52); Hemoglobin 9.6 g/dL (14.0-18.0)
[2019-07-31] MEDS ORDERED: FAMOTIDINE 20 MG in SYRINGE 3 ML IV SCH (21:00)
--- NOTE | 2019-08-01 15:50 | Wound Consultation ---
Date of Consultation July 27, 2019 Assessment & Plan (1) Ischemic toe ulcer: This 84-year-old male with arterial wounds of his left foot in the setting of chronic diabetes. Left lateral fifth toe with exposed bone. This wound will be covered with Promogran and OPTi foam changed every 3 days. Left plantar first toe will be painted with Betadine daily. May cover with OPTi foam. Would recommend continue use waffle boots. Is unlikely that these wounds will heal. Patient is scheduled for angiogram with Dr. Bender. Thank you for allow me to participate in the care of this patient. Please not hesitate to call with any questions. 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 Patient is currently on IV antibiotics. He was seen by Dr. Bender who plans on doing an angiogram. Orthopedics saw him and did not feel he requires urgent amputation. Recommending conservative treatment with wound care. Allergies Allergy/AdvReac Type Severity Reaction Status Date / Time No Known Allergies Allergy Unknown Verified 07/25/19 00:39 Home Medications Home Medications Medication Instructions Recorded Confirmed Type amlodipine 5 mg tablet 5 mg PO DAILY 04/12/19 07/25/19 History atenolol 25 mg tablet 25 mg PO DAILY 04/12/19 07/25/19 History Patient History Medical History (Updated 07/28/19 @ 20:28 by MIHIR Talbert) Anemia 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 DM II (diabetes mellitus, type II), controlled HTN (hypertension) Hypercholesteremia Ischemic toe ulcer PAD (peripheral artery disease) PAD (peripheral artery disease) SIRS (systemic inflammatory response syndrome) (Inactive) Surgical History Previous back surgery Social History Preferred Language: Tuvaluan Communication Ability: Impaired Communication Tools: Letter Board, Picture Board and Facial Expression Visual Impairment: Limited Hearing Ability: Hard of Hearing Beliefs That Will Affect Care: None marital status: Current Living Situation: Spouse current occupational status: retired current occupation: shoes salesman Feels Safe at Home: Yes Smoking Status: Former smoker Second Hand Exposure: No ; Hx Alcohol Use: No Hx Substance Use: No Childhood Exposure to Second-Hand Smoke: No caffeine: Yes (1 cup/day of coffee) during the past year weight has: decreased > 10 lbs Dental Care, Regularly: Yes Physical Activity Frequency: 1-2 Times per Week Sunscreen Use: Yes Do you think of yourself as: straight/heterosexual Sexual Activity: has been sexually active, but not for at least 12 months Review of Systems Review of Systems: All systems reviewed & are unremarkable except as noted in HPI & below Physical Exam Constitutional: WD/WN, vitals as above Skin: 1., Left lateral fifth toe measuring 0.5 x 0.4 x 0.1 cm. This is a surface area of 0.2 cm. Wound is covered with fibrin and slough. There is mild drainage and no foul odors. Left plantar great toe measuring 0.5 x 0.6 cm. This is a surface area 0.3 cm. Wound is covered with black eschar. Neurologic: awake and + confused Psychiatric: Orientation: cooperative PG Care Time/CCT Total # of Minutes Spent Total Time Spent with Patient: Total time spent is greater than 50% in coordinat ion of care (as documented) at patient's floor/unit and/or counseling patient: Coding Level of Care Code 42581 Inpt Consult Level 2 Diagnoses Ischemic toe ulcer L97.511 Laterality: right Non-pressure ulcer stage: limited to breakdown of skin Ischemia of lower extremity I99.8 (1) Ischemic toe ulcer Laterality: right Non-pressure ulcer stage: limited to breakdown of skin Qualified Code(s): L97.511 - Non-pressure chronic ulcer of other part of right foot limited to breakdown of skin
== END 2019-07-31 13:10 | disposition short-term general hospital (02) | DRG 854 ==
LOC: ED 23:10 → SUATTDRO 07-25 04:00 → 2N 07-25 04:00 → 1E 07-28 18:55
PROC: CLB.AEB (2019-07-28 09:00)
PROC: CLB.AEU (2019-07-28 15:00)